=== PATIENT | female | born 1960 | race Caucasian/White ===

== ENCOUNTER 2018-05-23 10:27 | Inpatient (IN) ==
[2018-05-23] MEDS ORDERED: Adenosine 90 MG/30 ML MLS IV ONE (11:32)
[2018-05-23] MEDS ORDERED: Naloxone 0.4 MG/ML INJ IVP PRN (12:33)
--- NOTE | 2018-05-23 12:46 | Cardiology History & Physical ---
Date of Encounter: 05/23/18 Time of Encounter: 12:30 Assessment and Plan (1) Abnormal stress test Current Visit: Yes Status: Acute The assessment and plan as outlined above was discussed with the patient and/or family members who expressed understanding and agreement. All questions were answered. C/o typical chest pain symptoms with h/o MA and CAD. Pharmacologic nuclear stress test completed today reviewed. Stress EKG showed NSR and she developed LBBB with stress. Perfusion imaging positive for ischemia in the inferolateral segments. [facility] recommended for further evaluation. R/B/A discussed and she agrees to proceed. Check CBC, BMP, PT/INR. Asa, statin, and bb. (2) Unstable angina Current Visit: Yes Status: Acute The assessment and plan as outlined above was discussed with the patient and/or family members who expressed understanding and agreement. All questions were answered. (3) CAD (coronary artery disease) Current Visit: Yes Status: Acute The assessment and plan as outlined above was discussed with the patient and/or family members who expressed understanding and agreement. All questions were answered. H/o CAD s/p MA and PCI to RCA in 2002. Continue asa. I will add statin and bb. Qualifiers: Coronary Disease-Associated Artery/Lesion type: [place] artery [place] vs. transplanted heart: [place] heart Associated angina: with unstable angina Qualified Code(s): I25.110 - Atherosclerotic heart disease of [place] coronary artery with unstable angina pectoris (4) COPD (chronic obstructive pulmonary disease) Current Visit: Yes Status: Acute The assessment and plan as outlined above was discussed with the patient and/or family members who expressed understanding and agreement. All questions were answered. No exacerbation at this time. Continue inhalers. Qualifiers: COPD type: unspecified COPD Qualified Code(s): J44.9 - Chronic obstructive pulmonary disease, unspecified History of Present Illness Chief complaint: chest pain HPI: Ms. Davidson is a 57 year old female with past medical history of CAD s/p prior PCI to the RCA at [facility] in 2002, COPD, and HTN. She presents from the [facility] stress lab as a direct admit for chest pain and abnormal stress test. C/o intermittent daily chest pain over the last month. C/o left sided chest pain that occurs after exertion lasting several minutes. Stress test was ordered by PCP for symptoms. Denies chest pain currently. Denies SOB, palpitations. Denies weight gain or edema. Past Med Surg Social Fam HX - Past Medical History Medical history: arthritis, COPD, coronary artery disease, hypertension, myocardial infarction Additional medical history: stent placement 2002. COPD dx 2006 Psychiatric history: anxiety, depression - Past Surgical History Additional surgical history: stent placement 2002 - Social History Smoking Status: Former smoker Smokeless Tobacco Status: No Alcohol use: none Drug use: none Medications and Allergies Aspirin [Ecotrin] 325 mg PO DAILY 05/23/18 [History] Cetirizine HCl [Zyrtec] 10 mg PO DAILY 05/23/18 [History] Fluticasone Furoate [Arnuity Ellipta] 1 puff IH DAILY 05/23/18 [History] Fluticasone Propionate Nasal [Flonase] 1 spray NS DAILY 05/23/18 [History] Hydrocodone/Acetaminophen [Hydrocodon-Acetaminophen 5-325] 1 each PO TID PRN [History] Ipratropium/Albuterol Neb [Duoneb] 3 ml IH Q6HR 05/23/18 [History] LORazepam [Ativan] 0.5 mg PO BID PRN 05/23/18 [History] Lisinopril [Zestril] 2.5 mg PO DAILY 05/23/18 [History] Magnesium Oxide [Magnesium] 400 mg PO DAILY 05/23/18 [History] Montelukast [Singulair] 10 mg PO DAILY 05/23/18 [History] Olodaterol HCl [Striverdi Respimat] 2 puff IH DAILY 05/23/18 [History] Sertraline [Zoloft] 100 mg PO DAILY 05/23/18 [History] Zolpidem [Ambien] 10 mg PO HS 05/23/18 [History] 3 Allergy/AdvReac Type Severity Reaction Status Date / Time No Known Allergies Allergy Unverified 10/21/15 08:30 All Systems Review: The remainder of the systems were reviewed and are negative Physical Examination Vital Signs, Last 4 Hours Temp Pulse Resp BP Pulse Ox 05/23/18 11:37 97.5 F L 71 16 135/84 98 General: Conversant, No Apparent Distress HEENT: Atraumatic, Normocephaly, Mucus Membranes Moist Neck: No JVD, Normal carotid pulses Cardiac: Reg Rate and Rhythm, Normal S1 and S2, No Murmur Lungs: Normal Breath Sounds, No Wheeze, Rales, Rhonchi Neuro: Alert and responsive, No focal deficits noted Abdomen: Soft, Non-Tender Skin: No rashes noted on visualized skin Musculoskeletal: No Chest Wall Tenderness Extremities: No Clubbing, No Cyanosis, No Edema, Normal Pulses Results - Imaging and Cardiology Stress Test: report reviewed - EKG Interpretation EKG results cardiology: personally reviewed
[2018-05-23 13:07] LABS: Basophils % 0.5 %; Eosinophils # 0.1 K/mcL (0.0-0.6); Hematocrit 43.8 % (35.3-44.9); Hemoglobin 14.9 g/dL (11.5-15.4); Immature Granulocytes % 0.3 % (0-4); Lymphocytes # 1.3 K/mcL (0.6-4.6); Mean Corpuscular Hemoglobin 29.7 pg (28.0-33.3); Mean Corpuscular Volume 87.4 fL (83.0-100.0); Monocytes # 0.4 K/mcL (0.0-1.3); Monocytes % 6.6 %; Platelet Count 259 K/mcL (140-400); Red Blood Count 5.01 M/mcL (3.82-4.97); Red Cell Distribution Width 12.8 % (11.5-14.5); Segmented Neutrophils % 69.6 %
[2018-05-23 13:25] LABS: Prothrombin Time 11.3 Seconds (9.4-12.1)
[2018-05-23 13:26] LABS: BUN/Creatinine Ratio 18 (6-26); Blood Urea Nitrogen 12 mg/dL (6-20); Calcium 9.7 mg/dL (8.6-10.3); Carbon Dioxide 26 mEq/L (23-29); Chloride 107 mEq/L (98-107); Glucose 93 mg/dL (70-105); Osmolality,Calculated 289 (280-300); Potassium 3.8 mEq/L (3.5-5.1); Sodium 140 mEq/L (136-145); eGFR For Non-African Americans > 60 (> 60)
[2018-05-23] MEDS: Aspirin Enteric Coated 325 MG Tablet PO SCH (14:05)
[2018-05-23] MEDS ORDERED: 0.9 % Sodium Chloride 1,000 ML ONE ×2 (15:38→15:39)
[2018-05-23] MEDS ORDERED: Nitroglycerin 1,000 MCG/10 ML VIAL IV ONE (15:38)
[2018-05-23] MEDS ORDERED: Heparin 1,000 UNITS/500 mL 500 ML ONE (15:38)
[2018-05-23] MEDS ORDERED: ISOVUE-370 200 ML INFUS..BTL IV ONE (15:38)
[2018-05-23] MEDS: Ipratropium/Albuterol Neb 3 ML IH SCH ×2 (15:38→21:42)
[2018-05-23] MEDS ORDERED: *HR* Heparin 10,000 UNIT/10 ML VIAL ONE (15:38)
--- NOTE | 2018-05-23 16:11 | Pre-Sedation Evaluation ---
Pre-sedation evaluation - Pre-sedation checklist Date of procedure: 05/23/18 Procedure: [facility] Recent Vitals: Last Vital Signs Temp 97.7 F 05/23/18 15:40 Pulse 65 05/23/18 15:40 Resp 15 05/23/18 15:40 BP 121/73 05/23/18 15:40 Pulse Ox 100 05/23/18 15:40 H&P (including ROS) documented in medical record: Yes Previous reaction to sedatives/anesthetics: No Dietary Status: NPO after Midnight Airway Assessment: Patient can open mouth completely, TMJ function normal, Micrognathia (under-bite, receding chin) absent, Neck with adequate range of motion Dentition: dentures removed Possible difficult airway: No ASA Classification *see protocol: CLASS II-Mild systemic disease Cardiac Registry (Cardio Only) - Functional Capacity Functional Capacity: < 4 METS - Clincal Frailty Scale Clinical Frailty Scale: Vulnerable
[2018-05-23] MEDS ORDERED: *HR* FentaNYL (PF) 100 MCG/2 ML VIAL ONE (16:17)
[2018-05-23] MEDS ORDERED: *HR* Midazolam HCl 2 MG/2 ML VIAL ONE ×2 (16:17→16:26)
--- NOTE | 2018-05-23 17:27 | Invasive Diagnostic Lab Proc ---
Name: Edna Davidson Date of Study: 05/23/2018 Date: 1960 Ht: 66.1in Medical Record#: [id number] Age: 57 Wt: 136.69lb Gender: Female BSA: 1.7 Order #: [id number] BMI: 21.97 Physicians Procedure Physician: Minal Nguyen MD, [facility] Referring MD: Referring MD: Staff Name Position Time In Bell Wade RT (R) Monitor 04:19 PM JrDany RT (R) 04:19 PM Cindy Werner RN Shiftman 04:19 PM Indications Indication Abnormal Test - Stress Procedures Performed Procedure L HRT ARTERY/VENTRICLE ANGIO IV Doppler BLD Flow 1st Vessel Pre-Procedure Checklist Informed consent is complete signed and on chart. H&P is on chart. ID band is on and ID verified with patient. Patient NPO for procedure The procedure was described for the patient and questions were answered. Blood Pressure: 135/84 ECG is on chart. Plan of Care Patient will tolerate the procedure without complications. Adequate level of comfort will be maintained. Hemodynamics will remain stable Patient will recover from procedure without complications. Respiratory function will be maintained. Cardiac rhythm will remain stable. Patient temperature will be maintained. Patient and/or family have verbalized understanding of the procedure. Patient Education Chief Complaint/Reason for Test: Cardiac Cath Developmental Category: Adult (18-64 years) Developmentally Appropriate for Age: Yes Learning Barriers: None Education Needs: Procedure Education Method: Verbal Information Taught: Cardiac Cath Educational Evaluation: Able to repeat information Intravenous Access Time IV Size Location DC'd Fluid/Drip Rate Units RN 22g 1" Patent On Arrival Lt Antecubital 0.9NaCl 25 ml/hr Allergies *HR* CODEINE Codeine Diphenhydramine Hydrochlorid Diphenhydramine No Known Allergies Vital Signs Time BP (mmHg) HR (bpm) O2 Sat. RR (bpm) LOC 01:04 PM 135 / 84 71 98 % 16 5 = Fully awake and oriented or at pre-proc level 04:20 PM / % 4 = Oriented but drowsy 04:17 PM 152 / 66 67 100 % 22 04:22 PM 122 / 60 65 98 % 21 04:27 PM 116 / 66 65 97 % 18 04:32 PM 103 / 51 65 93 % 24 04:37 PM 91 / 49 71 93 % 29 04:42 PM 102 / 49 69 94 % 15 04:47 PM 104 / 46 66 95 % 14 04:53 PM 127 / 62 65 99 % 30 04:57 PM 135 / 70 65 99 % 18 05:02 PM 147 / 76 77 100 % 23 05:07 PM 139 / 102 70 99 % Procedural Medications Time Medication Dose Units Method Given By 04:20 PM Oxygen 2 L/min nasal cannula Cindy Werner RN 04:20 PM Versed 2 mg Intravenous Cindy Werner RN 04:20 PM Fentanyl 50 mcg Intravenous Cindy Werner RN 04:23 PM Lidocaine 2% 19 ml Subcutaneous Minal Nguyen MD, FAC 04:25 PM Versed 1 mg Intravenous Cindy Werner RN 04:25 PM Fentanyl 25 mcg Intravenous Cindy Werner RN 04:36 PM Nitroglycerin 200 mcg Intracoronary Minal Nguyen MD, FACC 04:52 PM Angiomax 0.75mg/kg bolus: 9 ml Intravenous Cindy Werner RN 04:52 PM Angiomax 1.75mg/kg/hr: 21 ml Intravenous Cindy Werner RN 04:56 PM 90mg Adenosine in 90 ml 0.9 NS 521 mcg Intravenous Cindy Werner RN ASA Classification: CLASS II- Mild systemic disease (i.e. well-controlled diabetes, hypertension, asthma, cigarette smoking) [place] Score Preprocedure Postprocedure Activity 2- Moves 4 extremities sustained head lift Activity 2- Moves 4 extremities sustained head lift Circulation 2- SBP +/= 20 points of pre-anesthetic level Circulation 2- SBP +/= 20 points of pre-anesthetic level Consciousness 2- Awake and alert oriented x 3 Consciousness 2- Awake and alert oriented x 3 O2 Saturation 2- Able to maintain O2 satruation of 92% on room air O2 Saturation 2- Able to maintain O2 satruation of 92% on room air Respiratory 2- Able to deep breathe and cough well Respiratory 2- Able to deep breathe and cough well Total Score 10 Total Score 10 Contrast Agent: Isovue Diagnostic Contrast: 64 ml Total Contrast: 64 ml Fluoro Dose: 1349 mGy Procedure Log Time Note Enter By 04:09 PM CathStat 04:17 PM Case Start 04:17 PM Vitals capture started with the following parameters, Patient=Adult, Interval=5 min, Initial Tvmsmujg=210 mmHg, Deflation Rate=5 mmHg, Cuff placed on Right Arm 04:17 PM Recorded ECG: HR=64 Condition=Condition 1 04:17 PM HR=67 bpm, BNYI=756/66 mmhg, PeK6=742.0 %, Resp=22 B/min, Comment=NSR 04:19 PM Pt arrived to laborer/key man 2 at 16:19 [email or web address] 04:19 PM Bell Wade RT (R) Position: Monitor Time in: 16:19 [email or web address] 04:19 PM Dany Norris RT (R) Position: Time in: 16:19 [email or web address] 04:19 PM Cindy Werner RN Position: Shiftman Time in: 16:19 [email or web address] 04:19 PM Patient charges- Angio tray pack, Navilyst 3mm J, Pulse Oximetry and ACIST tubing and transducer [email or web address] 04:20 PM Case Delayed No [email or web address] 04:20 PM Hair removed from procedure site in holding area using clippers. Bilateral groin prepped with Chloraprep by Bell Wade RT (R), then patient was draped. Skin intact. [email or web address] 04:20 PM Physician arrived 16:20 [email or web address] 04:20 PM ASA Class CLASS II- Mild systemic disease (i.e. well-controlled diabetes, hypertension, asthma, cigarette smoking) [email or web address] 04:20 PM Meet and greet completed [email or web address] 04:20 PM Sign in performed according to hospital policy. [email or web address] 04:20 PM Procedure start 16:20 [email or web address] 04:20 PM Time: 16:20 Patient comfortable and pain free: Yes [email or web address] 04:20 PM Time: 16:20LOC: 4 = Oriented but drowsy [email or web address] 04:20 PM Time: 16:20 Oxygen on at 2 L/min per nasal cannula by Cindy Werner RN [email or web address] 04:20 PM Time: 16:20 Versed 2 mg Intravenous Given by Cindy Werner RN [email or web address] 04:21 PM Time: 16:20 Fentanyl 50 mcg Intravenous Given by Cindy Werner RN [email or web address] 04:21 PM Pressure channel 1 zeroed. 04:22 PM HR=65 bpm, EZUQ=331/60 mmhg, SpO2=98.0 %, Resp=21 B/min, Comment=NSR 04:23 PM Time out performed according to hospital policy [email or web address] 04:23 PM Time: 16:23 19 ml Lidocaine 2% to right groin Subcutaneous Given by Minal Nguyen MD, [facility] [email or web address] 04:24 PM Access obtained by percutaneous puncture. 5Fr 10cm Terumo Comstock sheath placed in right Femoral artery. [id number] [email or web address] 04:24 PM 0.035 145cm Navilyst 3mmJ wire [id number] [email or web address] 04:24 PM 5Fr FL 4 catheter inserted over the wire DN [email or web address] 04:25 PM Time: 16:25 Versed 1 mg Intravenous Given by Cindy Werner RN [email or web address] 04:25 PM Time: 16:25 Fentanyl 25 mcg Intravenous Given by Cindy Werner RN [email or web address] 04:25 PM Pressure channel 1 zeroed. 04:26 PM LCA angiography performed in multiple views. [email or web address] 04:26 PM Recorded Pressure: Ao, HR=67, Condition=Condition 1 (Aorta) Ao 91/40/66 04:27 PM Catheter removed [email or web address] 04:27 PM 5Fr FR 4 catheter inserted over the wire DN [email or web address] 04:27 PM RCA angiography performed in multiple views. [email or web address] 04:27 PM HR=65 bpm, QMGB=180/66 mmhg, SpO2=97.0 %, Resp=18 B/min, Comment=NSR 04:28 PM Recorded Pressure: Ao, HR=66, Condition=Condition 1 (Aorta) Ao 93/56/73 04:28 PM Coronary Dominance: right [email or web address] 04:29 PM Catheter removed [email or web address] 04:29 PM 5Fr Pigtail catheter inserted over the wire DN [email or web address] 04:29 PM Pressure channel 1 zeroed. 04:30 PM Recorded Pressure: LV, HR=67, Condition=Condition 1 (Left Ventricle) LV 90/6/7 04:30 PM Catheter selectively placed in left ventricle [email or web address] 04:30 PM Bolus angiogram of left Ventricle complete: 8 ml/sec for a total of 24 mls [email or web address] 04:30 PM Recorded Pressure: LV, Ao, HR=77, Condition=Condition 1 (Left Ventricle) LV 65/11/27, (Aorta) Ao 82/51/66 04:30 PM Catheter removed [email or web address] 04:32 PM HR=65 bpm, YMMU=561/51 mmhg, SpO2=93.0 %, Resp=24 B/min, Comment=NSR 04:32 PM Pressure channel 1 zeroed. 04:35 PM 4Fr FL catheter inserted over the wire [id number] [email or web address] 04:36 PM Recorded Pressure: Ao, HR=69, Condition=Condition 1 (Aorta) Ao 91/49/66 04:36 PM Time: 16:36 Nitroglycerin 200 mcg Intracoronary Given by Minal Nguyen MD, [facility] [email or web address] 04:37 PM Recorded Pressure: Ao, HR=71, Condition=Condition 1 (Aorta) Ao 76/53/65 04:37 PM HR=71 bpm, NIBP=91/49 mmhg, SpO2=93.0 %, Resp=29 B/min, Comment=NSR 04:39 PM LCA angiography performed in multiple views. [email or web address] 04:39 PM Catheter removed [email or web address] 04:40 PM 5 Fr FL catheter re-inserted. [email or web address] 04:42 PM NIBP STAT measurement started. 04:42 PM Catheter removed [email or web address] 04:42 PM HR=69 bpm, GYLW=789/49 mmhg, SpO2=94.0 %, Resp=15 B/min, Comment=NSR 04:44 PM Pressure channel 1 zeroed. 04:47 PM HR=66 bpm, HTBT=487/46 mmhg, SpO2=95.0 %, Resp=14 B/min, Comment=NSR 04:50 PM [ Start FFR sample ] 04:50 PM [ Start FFR sample ] 04:51 PM Pressure channel 3 zeroed. 04:52 PM 6Fr RBL 3.5 Convey guide catheter was used to cannulate the PCI vessel successfully. reused? No [email or web address] 04:52 PM Inflation device was opened. [email or web address] 04:52 PM Time: 16:52 Angiomax 0.75mg/kg bolus: 9 ml Intravenous Given by Cindy Werner RN Cadena pump [email or web address] 04:52 PM Time: 16:52 Angiomax 1.75mg/kg/hr: 21 ml Intravenous Given by Cindy Werner RN Cadena pump [email or web address] 04:52 PM [employer] FFR Wire advanced to target lesion. [email or web address] 04:53 PM HR=65 bpm, NSSY=245/62 mmhg, SpO2=99.0 %, Resp=30 B/min 04:54 PM Pressure channel 3 equalized to channel 1. 04:56 PM Time: 16:56 90mg Adenosine in 90 ml 0.9 NS 521 mcg Intravenous Given by Cindy Werner RN Cadena pump [email or web address] 04:57 PM HR=65 bpm, JPAV=016/70 mmhg, SpO2=99.0 %, Resp=18 B/min, Comment=NSR 04:58 PM FFR: Value=0.87, Condition=Condition 1, Device=VOLCANO PRIME WIRE 04:58 PM Recorded Pressure: Ao, PV1, FFR=0.87, HR=78, Condition=Condition 1 (Aorta) Ao 126/69/92, (Portal Vein) PV1 120/121/81 04:59 PM Angiomax turned off. [email or web address] 05:00 PM FFR Measurement: 0.87 [email or web address] 05:00 PM Flow Wire/Catheter removed intact [email or web address] 05:00 PM Guide catheter removed intact. [email or web address] 05:01 PM Procedure completed at 17:01 05/23/2018 [email or web address] 05:01 PM Did you address FRANCISCO flow and Dominance? Yes [email or web address] 05:02 PM Sign out completed: Radiation Dose 113.41 mGy, 1348.95 cGy/cm2 Fluoro Time: 3.7 Isovue 370 - 64ml contrast 64 ml given by Minal Nguyen MD, [facility]. Complications: NoneCardiac Rehab Consult needed: YesConfirmed administered medications: Yes [email or web address] 05:02 PM Isovue 370 - 200ml,1 Bottle(s) used. [email or web address] 05:02 PM Estimated Blood Loss: minimal [email or web address] 05:02 PM Post ECG NSR [email or web address] 05:02 PM Post Blood Pressure 135/70 [email or web address] 05:02 PM Information taught Cardiac Cath [email or web address] 05:02 PM HR=77 bpm, NNJQ=713/76 mmhg, CgG0=726.0 %, Resp=23 B/min, Comment=NSR 05:02 PM Education needs Procedure, Plan of Care, and Disease Process [email or web address] 05:03 PM Learning barriers :None [email or web address] 05:03 PM Education Methods Verbal [email or web address] 05:03 PM Education evaluation Able to repeat information [email or web address] 05:03 PM Arterial sheath pulled, Mynx closure device used and was Successful S/N. [email or web address] 05:04 PM Delay to floor No [email or web address] 05:04 PM Family placed in consult room. [email or web address] 05:04 PM Complications: None [email or web address] 05:07 PM HR=70 bpm, UFZW=505/102 mmhg, SpO2=99.0 % 05:07 PM Site status No bleeding/hematoma - Rt Groin as reported by Dany Norris RT (R) at 17:07 [email or web address] 05:07 PM Opsite applied [email or web address] 05:19 PM Report given to Sandhya GALEAS Pt taken to Room #36. 17:19 [email or web address] 05:19 PM Patient out of room: 17:19 [email or web address] Complications Complication None None Hemodynamics Pressures Site Systolic/A Wave Diastolic/V Wave Mean AO 91 40 66 AO 93 56 73 LV 90 6 7 LV 65 11 27 AO 82 51 66 AO 91 49 66 AO 76 53 65 AO 126 69 92 PV1 120 121 81 Post Procedure Information Blood Pressure: 135/70 mmHg Rhythm: NSR Post procedural instructions were given Closure Device Time Device Success/Fail 05/23/2018 5:05:00 PM MynxGrip Successful Site Checks Time Location Status Staff Sheath In? Note 05:07 PM Rt Groin No bleeding/hematoma Dany Norris RT (R) Pulses Time Site Pre-Procedure Post-Procedure Note Bilateral DP 2+ 2+ Bilateral radial 2+ 2+ Updated by Bell Wade RT(R) on 05/23/2018 5:19:28 PM electronically signed on 05/23/2018 5:20:02 PM with status of Final
[2018-05-23] MEDS ORDERED: Nitroglycerin 0.4 MG TAB.SUBL SL PRN (17:41)
[2018-05-23] MEDS ORDERED: 0.9 % Sodium Chloride 250 ML IVC ONE (19:32)
[2018-05-23] MEDS ORDERED: 0.9 % Sodium Chloride 250 ML ONE (19:34)
[2018-05-24] MEDS: Ipratropium/Albuterol Neb 3 ML IH SCH ×4 (03:59→21:37)
[2018-05-24] MEDS: (Fluticasone Furoate [Arnuity Ellipta] 1 PUFF) IH SCH (07:16)
[2018-05-24] MEDS: (Olodaterol Hcl [Striverdi Respimat] 2 PUFF) IH SCH (07:17)
[2018-05-24] MEDS: Aspirin Enteric Coated 325 MG Tablet PO SCH (07:24)
[2018-05-24] MEDS: Loratadine 10 MG TABLET PO SCH (07:24)
[2018-05-24] MEDS: Isosorbide MONOnitrate (24 HR) 30 MG TAB.ER.24H PO SCH (07:25)
[2018-05-24] MEDS: Magnesium Oxide 400 MG TABLET PO SCH (07:25)
[2018-05-24] MEDS: *HR* LORazepam 0.5 MG TABLET PO PRN ×2 (10:21→19:46)
--- NOTE | 2018-05-24 10:27 | Cardiothoracic Consult Note ---
Date of Encounter: 05/24/18 Time of Encounter: 10:24 Assessment and Plan (1) CAD (coronary artery disease) Current Visit: Yes Status: Acute The assessment and plan as outlined above was discussed with the patient and/or family members who expressed understanding and agreement. All questions were answered. The patient has a left main lesion as well as an ostial circumflex lesion that is difficult for PTCA. I discussed coronary artery bypass grafting with her and her family. This would include a left internal mammary artery to the LAD and a vein graft to the obtuse marginal branch of the circumflex. Risks of surgery include , stroke, infection, myocardial infarction, clots around the heart, renal or respiratory failure, acute or chronic graft closure, phrenic nerve injury and sternal dehiscence. She is at increased risk for pulmonary complications and ventilator dependence because of her pre-existing COPD. She uses inhalers and is on 3 L oxygen by nasal prong almost continuously. The procedure, its risks, benefits and alternatives were explained and she does wish to proceed. Operative consent was obtained. Because she has been having almost daily chest pain at rest, we will schedule her for tomorrow. Qualifiers: Coronary Disease-Associated Artery/Lesion type: [place] artery [place] vs. transplanted heart: [place] heart Associated angina: with unstable angina Qualified Code(s): I25.110 - Atherosclerotic heart disease of [place] coronary artery with unstable angina pectoris - History of Present Illness History of present illness: Ms. Davidson is a 57 year old female The patient is a 57-year-old female with a history of chest pain and a positive stress test. The chest pain occurs daily and occurs with rest and activity. She did have a myocardial infarction in 2002 and stent placement in her right coronary artery in 2002. Cardiac catheterization revealed minor right coronary artery disease. She has a 50% left main lesion. She has a 99% ostial circumflex lesion that abuts the left main. This would be difficult to angioplasty as it is quite close to the left main. No history of diabetes. She does have hypertension and hypercholesterolemia. She does have a history of significant COPD and uses inhalers and is on 3 L oxygen by nasal prong more or less continuously. Social history. She lives with her sister in [place]. Her recently . She used to smoke but quit in 2006. She does not drink. Review of systems is notable for headaches. She has been under a lot of stress. She did have a negative brain scan in [place]. Past Med Surg Social Fam HX - Past Medical History Medical history: arthritis, COPD, coronary artery disease, hypertension, myocardial infarction Additional medical history: stent placement 2002. COPD dx 2006 Psychiatric history: anxiety, depression - Past Surgical History Additional surgical history: stent placement 2002 - Social History Smoking Status: Former smoker Smokeless Tobacco Status: No Alcohol use: none Drug use: none Medications and Allergies Aspirin [Ecotrin] 325 mg PO DAILY 05/23/18 [History] Cetirizine HCl [Zyrtec] 10 mg PO DAILY PRN 05/23/18 [History] Fluticasone Furoate [Arnuity Ellipta] 1 puff IH DAILY 05/23/18 [History] Fluticasone Propionate Nasal [Flonase] 1 spray NS DAILY PRN 05/23/18 [History] Hydrocodone/Acetaminophen [Hydrocodon-Acetaminophen 5-325] 1 each PO TID PRN [History] Ipratropium/Albuterol Neb [Duoneb] 3 ml IH Q6HR PRN 05/23/18 [History] LORazepam [Ativan] 0.5 mg PO BID PRN 05/23/18 [History] Lactobacillus Combination No.8 [Adult Probiotic] 1 cap PO DAILY 05/23/18 [ History] Lisinopril [Zestril] 2.5 mg PO DAILY PRN 05/23/18 [History] Magnesium Oxide [Magnesium] 400 mg PO DAILY 05/23/18 [History] Montelukast [Singulair] 10 mg PO DAILY 05/23/18 [History] Olodaterol HCl [Striverdi Respimat] 2 puff IH DAILY 05/23/18 [History] Oxygen 3 l NS AD 05/23/18 [History] Sertraline [Zoloft] 100 mg PO HS 05/23/18 [History] Zolpidem [Ambien] 10 mg PO HS 05/23/18 [History] 3 Allergy/AdvReac Type Severity Reaction Status Date / Time No Known Allergies Allergy Verified 05/23/18 18:10 All Systems Review: The remainder of the systems were reviewed and are negative Physical Examination Vital Signs, Last 4 Hours Temp Pulse Resp BP Pulse Ox 05/24/18 10:18 98.1 F 59 15 120/71 95 05/24/18 07:00 98.3 F 71 15 125/69 94 Pupils are equal, round and reactive to light and accommodation. No oral lesions. Neck is supple. Trachea in the midline. No thyromegaly or carotid bruits. Lungs are clear to percussion and auscultation. Heart is in a regular rate and rhythm. No murmurs, gallops or rubs. Abdomen is benign. No tenderness, rebound or guarding. Extremities without edema. No saphenous vein varicosities or strippings. Cranial nerves, motor and sensory intact. Results 05/23/18 12:45 05/23/18 12:45 Lab Results, Last 24 hours 05/23/18 05/23/18 05/23/18 12:45 12:45 12:45 WBC 5.8 Hgb 14.9 Hct 43.8 Plt Count 259 INR 1.0 Sodium 140 Potassium 3.8 Chloride 107 Carbon Dioxide 26 BUN 12 Creatinine 0.68 Glucose 93 Calcium 9.7 Consult Discharge Plan - Plan Referrals: Cassie Gonzalez CNP [Primary Care Provider] - 06/15/18 3:30 pm
[2018-05-24 11:18] LABS: Estimated Average Glucose 103 mg/dl; Hemoglobin A1C 5.2 %
[2018-05-24 11:24] LABS: Basophils % 0.3 %; Eosinophils % 0.5 %; Hematocrit 39.3 % (35.3-44.9); Immature Granulocytes % 0.2 % (0-4); Lymphocytes # 0.9 K/mcL (0.6-4.6); Lymphocytes % 14.5 %; Mean Corpuscular HGB Conc 33.8 g/dL (31.6-35.5); Mean Corpuscular Volume 88.7 fL (83.0-100.0); Mean Platelet Volume 9.2 fL (9.4-12.4); Monocytes # 0.4 K/mcL (0.0-1.3); Monocytes % 6.2 %; Neutrophils # 4.8 K/mcL (1.6-8.9); Platelet Count 261 K/mcL (140-400); Red Blood Count 4.43 M/mcL (3.82-4.97); Segmented Neutrophils % 78.3 %
[2018-05-24 11:38] LABS: Prothrombin Time 11.4 Seconds (9.4-12.1)
[2018-05-24 11:41] LABS: Activated Partial Thrombo Time 31.2 Seconds (26.0-36.0)
[2018-05-24 11:55] LABS: BUN/Creatinine Ratio 19 (6-26); Blood Urea Nitrogen 13 mg/dL (6-20); Calcium 9.2 mg/dL (8.6-10.3); Carbon Dioxide 26 mEq/L (23-29); Chloride 109 mEq/L (98-107); Chol/HDL Ratio 2.9 (0-4.9); Cholesterol 219 mg/dL (< 200); Glucose 101 mg/dL (70-105); HDL Cholesterol 75 mg/dL (40-59); Hemoglobin 13.3 g/dL (11.5-15.4); LDL Cholesterol,Calculated 128 mg/dL (0-99); Osmolality,Calculated 290 (280-300); Potassium 3.9 mEq/L (3.5-5.1); Sodium 140 mEq/L (136-145); Triglycerides 79 mg/dL (< 150); eGFR For Non-African Americans > 60 (> 60)
--- NOTE | 2018-05-24 11:57 | Anesthesia Evaluation PreOp ---
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: Other (anxiety depression) Other Medical History: Denies Any Significant HX Anesthesia History: No Prior Anesthetic Complications, Past Anesthesia : No Alcohol Use: none Drug use: none Medications and Allergies Aspirin [Ecotrin] 325 mg PO DAILY 05/23/18 [History] Cetirizine HCl [Zyrtec] 10 mg PO DAILY PRN 05/23/18 [History] Fluticasone Furoate [Arnuity Ellipta] 1 puff IH DAILY 05/23/18 [History] Fluticasone Propionate Nasal [Flonase] 1 spray NS DAILY PRN 05/23/18 [History] Hydrocodone/Acetaminophen [Hydrocodon-Acetaminophen 5-325] 1 each PO TID PRN [History] Ipratropium/Albuterol Neb [Duoneb] 3 ml IH Q6HR PRN 05/23/18 [History] LORazepam [Ativan] 0.5 mg PO BID PRN 05/23/18 [History] Lactobacillus Combination No.8 [Adult Probiotic] 1 cap PO DAILY 05/23/18 [ History] Lisinopril [Zestril] 2.5 mg PO DAILY PRN 05/23/18 [History] Magnesium Oxide [Magnesium] 400 mg PO DAILY 05/23/18 [History] Montelukast [Singulair] 10 mg PO DAILY 05/23/18 [History] Olodaterol HCl [Striverdi Respimat] 2 puff IH DAILY 05/23/18 [History] Oxygen 3 l NS AD 05/23/18 [History] Sertraline [Zoloft] 100 mg PO HS 05/23/18 [History] Zolpidem [Ambien] 10 mg PO HS 05/23/18 [History] 3 Allergy/AdvReac Type Severity Reaction Status Date / Time No Known Allergies Allergy Verified 05/23/18 18:10 - Meds/Allergy Pre-op Review Medications Reviewed: Yes Allergies Reviewed: Yes Anesthesia Results - Labs 05/24/18 10:47 05/24/18 10:47 - Imaging EKG: report reviewed, image reviewed Additional studies: Impressions: Double vessel coronary artery disease. The left ventricle is normal and has normal contractility EF 65% Recommendations: Optimal medical therapy of patient's disease. Aggressive risk factor modification. Evaluate for CABG vs high risk PCI of ostial Cx. History/Risk Factors: COPD Anxiety/depression PCI to RCA Hypertension Previous PCI Date: 09/26/2002 Access obtained in the right Femoral artery by percutaneous puncture Contrast: Isovue 64ml LV Ventriculography Ejection Method: LV Gram Ejection Fraction: 65% Coronary Dominance: right Lesion Findings/Interventions * Left Main Coronary Artery There is a 50% stenosis in the Proximal LMCA. Catheter-induced spasm alleviated with IC NTG. FFR 0.87. * Left Anterior Descending There is a 30% stenosis in the Proximal LAD. The lesion has moderate calcification noted. There is a 20% stenosis in the 1st Diagonal. The lesion has moderate calcification noted. * Circumflex There is a 99% stenosis in the Ostial/ Proximal Circumflex. * Right Coronary Artery There is a 30% stenosis in the Proximal RCA. There is a 30% in stent stenosis in the Mid RCA. There is a 40% stenosis in the Distal RCA. Anesthesia Exam Vital Signs/O2 Sat/Glucose, Most Recent Temp Pulse Resp BP Pulse Ox 98.1 F 59 15 120/71 95 05/24/18 10:18 05/24/18 10:18 05/24/18 10:18 05/24/18 10:18 05/24/18 10:18 Height: 1.68 m Weight: 61.4 kg NPO (# of Hours): midnight - HEENT Pupil (Motor): Pupils equal Mallampati: II Denture Type: Upper: Partial - PIPE LINE INSPECTOR LOC: Oriented PIPE LINE INSPECTOR Motor: Normal RUE, Normal LUE, Normal RLE, Normal LLE, Normal Face PIPE LINE INSPECTOR Sensory: Normal: RUE, LUE, RLE, LLE, Face - Cardiac Rhythm: Regular Murmur: None - Pulmonary Breath Sounds: bilateral Clear Respiratory Effort: Symmetrical Anesthesia Assess/Plan ASA Score: 4 Modified Pedrito Scale for Level of Consciousness: Cooperative, oriented, and tranquil Anesthetic Plan: General Monitoring Plan: Standard Monitors, A-Line, PAC, JANETTE Recovery Plan: ICU
--- NOTE | 2018-05-24 13:12 | Cardiology Progress Note ---
Date of Encounter: 05/24/18 Time of Encounter: 12:10 Assessment and Plan (1) Abnormal stress test Current Visit: Yes Status: Acute The assessment and plan as outlined above was discussed with the patient and/or family members who expressed understanding and agreement. All questions were answered. C/o typical chest pain symptoms with h/o TN and CAD. Stress EKG showed NSR and she developed LBBB with stress. Perfusion imaging positive for ischemia in the inferolateral segments. LHC completed revealed severe two vessel CAD. CT surgery consulted and CABG recommended. Surgery scheduled for am. Asa, statin, and bb. D/c aceI as recommended by guidelines for CABG. (2) Unstable angina Current Visit: Yes Status: Acute The assessment and plan as outlined above was discussed with the patient and/or family members who expressed understanding and agreement. All questions were answered. Currently pain free. See plan above. (3) CAD (coronary artery disease) Current Visit: Yes Status: Acute The assessment and plan as outlined above was discussed with the patient and/or family members who expressed understanding and agreement. All questions were answered. H/o CAD s/p TN and PCI to RCA in 2002. Continue asa, statin,and bb. LHC revealed severe double vessel CAD. There is a 50% stenosis in the Proximal LMCA. Catheter-induced spasm alleviated with IC NTG. FFR 0.87. 30% stenosis in the Proximal LAD. 20% stenosis in the 1st Diagonal. 99% stenosis in the Ostial/ Proximal Circumflex. 30% stenosis in the Proximal RCA. 30% in stent stenosis in the Mid RCA. 40% stenosis in the Distal RCA. No complication from procedure. CABG scheduled for tomorrow. CT surgery following pt. Qualifiers: Coronary Disease-Associated Artery/Lesion type: [place] artery [place] vs. transplanted heart: [place] heart Associated angina: with unstable angina Qualified Code(s): I25.110 - Atherosclerotic heart disease of [place] coronary artery with unstable angina pectoris (4) COPD (chronic obstructive pulmonary disease) Current Visit: Yes Status: Acute The assessment and plan as outlined above was discussed with the patient and/or family members who expressed understanding and agreement. All questions were answered. No exacerbation at this time. Continue inhalers. Qualifiers: COPD type: unspecified COPD Qualified Code(s): J44.9 - Chronic obstructive pulmonary disease, unspecified Discussion w patient/family: The assessment and plan as outlined above was discussed with the patient and/or family members who expressed understanding and agreement. All questions were answered. Thank you for involving us in the care of your patient. Please call with any questions. Subjective Principal diagnosis: CAD, unstable angina Interval history: S/p C. Patient decided to proceed with CABG and is scheduled for tomorrow. Patient and family deny questions. Objective Vital Signs, Last 4 Hours Temp Pulse Resp BP Pulse Ox 05/24/18 10:18 98.1 F 59 15 120/71 95 General: Conversant, No Apparent Distress HEENT: Atraumatic, Normocephaly, Mucus Membranes Moist Neck: No JVD, Normal carotid pulses Cardiac: Reg Rate and Rhythm, Normal S1 and S2, No Murmur Lungs: Normal Breath Sounds, No Wheeze, Rales, Rhonchi Neuro: Alert and responsive, No focal deficits noted Abdomen: Soft, Non-Tender Skin: No rashes noted on visualized skin Musculoskeletal: No Chest Wall Tenderness Extremities: No Clubbing, No Cyanosis, No Edema, Normal Pulses, Other (Right radial access dressing removed. No hematoma. ) Results 05/24/18 10:47 05/24/18 10:47 Lab Results 05/23/18 05/23/18 05/24/18 12:45 12:45 10:47 WBC 6.1 Hgb 13.3 D Hct 39.3 Plt Count 261 INR 1.0 APTT Sodium 140 Potassium 3.8 Chloride 107 Carbon Dioxide 26 BUN 12 Creatinine 0.68 Glucose 93 Calcium 9.7 05/24/18 05/24/18 10:47 10:47 WBC Hgb Hct Plt Count INR 1.0 APTT 31.2 Sodium 140 Potassium 3.9 Chloride 109 H Carbon Dioxide 26 BUN 13 Creatinine 0.67 Glucose 101 Calcium 9.2 - Imaging and Cardiology Stress Test: report reviewed Echo: report reviewed - EKG Interpretation EKG results cardiology: personally reviewed Consult Discharge Plan - Plan Referrals: Cassie Gonzalez CNP [Primary Care Provider] - 06/15/18 3:30 pm
[2018-05-24 14:40] LABS: Bilirubin,Urine Negative (Negative); Blood,Urine Negative (Negative); Clarity,Urine Clear (Clear); Color,Urine Yellow (Yellow); Glucose,Urine (UA) Normal (Normal); Ketones,Urine Negative (Negative); Leukocyte Esterase,Urine Negative (Negative); Nitrite,Urine Negative (Negative); Protein,Urine Negative (Neg-Trace); Urobilinogen,Urine Normal (Normal)
[2018-05-24] MEDS ORDERED: *HR* Heparin 5,000 UNIT/ML VIAL SQ ONE (18:00)
[2018-05-24] MEDS: *HR* HYDROcodone/Acet 5/325 mg TABLET PO PRN (19:40)
[2018-05-24] MEDS: Chlorhexidine Rinse 15 ML MOUTHWASH MM SCH (22:11)
[2018-05-25] MEDS: Ipratropium/Albuterol Neb 3 ML IH SCH ×4 (03:36→22:08)
[2018-05-25] MEDS ORDERED: CeFAZolin Syr 2,000MG/20 ML 2,000 MG/20 ML SYRINGE IVPB ONE (07:00)
[2018-05-25] MEDS ORDERED: *HR* Phenylephrine 10 MG/ML VIAL IVC ONE (08:23)
[2018-05-25] MEDS ORDERED: Lidocaine 2% Syringe 100 MG/5 ML IV ONE (08:23)
[2018-05-25] MEDS ORDERED: Albumin Human 25% 25 GM/100 ML IV.SOLN IV ONE (08:23)
[2018-05-25] MEDS ORDERED: *HR* Magnesium Sulfate 2 GM/50 ML PIGGYBACK IVPB ONE (08:23)
[2018-05-25] MEDS ORDERED: *HR* Heparin 10,000 UNIT/10 ML VIAL IV ONE (08:23)
[2018-05-25] MEDS ORDERED: Mannitol 25% vial 12.5 GM/50 ML VIAL IVP ONE (08:23)
[2018-05-25] MEDS ORDERED: Tranexamic Acid 1,000 MG/10 ML VIAL IVPB ONE (08:23)
[2018-05-25] MEDS: Loratadine 10 MG TABLET PO SCH (08:33)
[2018-05-25] MEDS: Magnesium Oxide 400 MG TABLET PO SCH (08:33)
[2018-05-25] MEDS: Isosorbide MONOnitrate (24 HR) 30 MG TAB.ER.24H PO SCH (08:33)
[2018-05-25] MEDS: Chlorhexidine Rinse 15 ML MOUTHWASH MM SCH ×2 (08:33→19:29)
[2018-05-25] MEDS: Aspirin Enteric Coated 325 MG Tablet PO SCH (08:33)
[2018-05-25] MEDS: (Fluticasone Furoate [Arnuity Ellipta] 1 PUFF) IH SCH (08:34)
[2018-05-25] MEDS: (Olodaterol Hcl [Striverdi Respimat] 2 PUFF) IH SCH (08:34)
[2018-05-25] MEDS: *HR* LORazepam 0.5 MG TABLET PO PRN ×2 (08:40→19:29)
[2018-05-25] MEDS ORDERED: *HR* FentaNYL (PF) 1,000 MCG/20 ML VIAL ONE (09:23)
[2018-05-25] MEDS ORDERED: *HR* Propofol 200 MG/20 ML VIAL IVP ONE (09:23)
[2018-05-25] MEDS ORDERED: *HR* Midazolam HCl 5 MG/5 ML VIAL IVP ONE (09:26)
[2018-05-25] MEDS ORDERED: ceFAZolin 2,000 MG in 0.9 % Sodium Chloride 100 ML IVPB ONE (09:30)
[2018-05-25] MEDS ORDERED: *HR* EPINEPHrine 1 MG/ML AMPUL ONE (09:32)
[2018-05-25] MEDS ORDERED: Lidocaine 2% Syringe 100 MG/5 ML ONE (09:33)
[2018-05-25] MEDS ORDERED: Norepinephrine 4 MG in D5% in Water 250 ML IVC PRN (10:25)
[2018-05-25] MEDS ORDERED: Dextrose 50 % in Water (Vial) 30 ML, Sodium Bicarbonate 20 MEQ, Potassium Chloride 15 M... TH ONE (10:25)
[2018-05-25] MEDS ORDERED: Insulin Human Regular 100 UNIT in 0.9 % Sodium Chloride 100 ML IV PRN (10:25)
[2018-05-25] MEDS ORDERED: Dextrose 50 % in Water (Vial) 30 ML, Sodium Bicarbonate 20 MEQ, Lidocaine 1% 5 ML, Insu... TH ONE ×3 (10:25)
[2018-05-25] MEDS ORDERED: Heparin 15,000 UNIT in 0.9 % Sodium Chloride 500 ML IV ONE (10:25)
[2018-05-25] MEDS ORDERED: Nitroglycerin 25 MG/250 ML INFUS..BTL IVC ONE (10:26)
[2018-05-25] MEDS ORDERED: Verapamil 5 MG/2 ML VIAL ONE (10:31)
[2018-05-25] MEDS ORDERED: Albumin Human 5% 50.0 GM/1,000 ML VIAL ONE (11:07)
[2018-05-25] MEDS ORDERED: 0.9 % Sodium Chloride 500 ML ONE (11:07)
[2018-05-25 11:55] LABS: ABG Base Excess -3 mEq/L (-2 to 3); ABG Chloride 109 mEq/L (98-107); ABG Glucose 95 mg/dL (60-95); ABG HCO3 24 mEq/L (21-27); ABG Ionized Calcium 1.29 mmol/L (1.15-1.35); ABG Oxygen Saturation 98 % (95-98); ABG PCO2 50 mmHg (35-45); ABG PO2 123 mmHg (85-104); ABG TCO2 26 mEq/L (20-26)
[2018-05-25] MEDS ORDERED: *HR* Rocuronium Bromide 50 MG/5 ML VIAL ONE ×2 (12:02→13:54)
[2018-05-25] MEDS ORDERED: Tranexamic Acid 1,000 MG/10 ML VIAL ONE (12:05)
--- NOTE | 2018-05-25 12:24 | Anesthesia Procedures ---
Date of Encounter: 05/25/18 Time of Encounter: 11:15 Procedures: Anesthesia - Arterial Line Consent obtained: written consent Time out performed: Yes Sedation: Versed (mg): 2 Sedation: Fentanyl (mcg): 50 Supplemental Oxygen via Nasal Cannula (L/min): 6 Local Anesthetic: Lidocaine 1% Amount of Anesthetic used (mls): 0.2 Size (Gauge): 20 Length (inches): 1 3/4 Technique Used: direct puncture technique Post-Procedure: line taped into place, dry sterile dressing placed Patient tolerated procedure: well, no complications Complications: none Site: Radial L - Central Line Placement Right IJ Consent obtained: written consent Time out performed: Yes Patient placed on monitor/pulse ox: Yes MD prep: mask, gown, gloves Central line prep: Chlorhexidine scrub Ultrasound used for placement: Yes Technique: Seldinger Lumen Inserted: single Size / Length: 9 Fr / 10 cm Post procedure: sutured in place, good blood return, all ports aspirated, flushed, capped, sterile dressing applied Patient tolerated procedure: well, no complications Complications: none Vitals: see anesthesia chart Comments: PAC inserted with pressure waveform analysis. Secured at 45 cm
[2018-05-25] MEDS ORDERED: *HR* Magnesium Sulfate 1 GM/2 ML VIAL ONE (12:29)
[2018-05-25] MEDS ORDERED: Dexamethasone 4 MG/ML VIAL ONE (12:42)
[2018-05-25 13:18] LABS: ABG Base Excess -1 mEq/L (-2 to 3); ABG Chloride 100 mEq/L (98-107); ABG Glucose 191 mg/dL (60-95); ABG HCO3 23 mEq/L (21-27); ABG Ionized Calcium 0.93 mmol/L (1.15-1.35); ABG Oxygen Saturation 100 % (95-98); ABG PCO2 33 mmHg (35-45); ABG PH 7.45 pH Units (7.32-7.45); ABG PO2 569 mmHg (85-104); ABG TCO2 24 mEq/L (20-26)
[2018-05-25] MEDS ORDERED: Protamine Sulfate 250 MG/25 ML VIAL IVP ONE (13:40)
[2018-05-25] MEDS ORDERED: *HR* FentaNYL (PF) 250 MCG/5 ML VIAL ONE (13:40)
[2018-05-25] MEDS ORDERED: Ondansetron 4 MG/2 ML VIAL ONE (13:57)
[2018-05-25 13:58] LABS: ABG Base Excess 4 mEq/L (-2 to 3); ABG Chloride 104 mEq/L (98-107); ABG Glucose 59 mg/dL (60-95); ABG HCO3 29 mEq/L (21-27); ABG Ionized Calcium 1.21 mmol/L (1.15-1.35); ABG Oxygen Saturation 100 % (95-98); ABG PCO2 40 mmHg (35-45); ABG PH 7.47 pH Units (7.32-7.45); ABG PO2 467 mmHg (85-104); ABG TCO2 30 mEq/L (20-26)
[2018-05-25] MEDS ORDERED: *HR* Dextrose 50 % in Water (Syg) 50 ML SYRINGE ONE (14:23)
[2018-05-25 14:30] LABS: ABG Base Excess -3 mEq/L (-2 to 3); ABG Chloride 109 mEq/L (98-107); ABG Glucose 48 mg/dL (60-95); ABG HCO3 22 mEq/L (21-27); ABG Ionized Calcium 1.05 mmol/L (1.15-1.35); ABG Oxygen Saturation 98 % (95-98); ABG PCO2 39 mmHg (35-45); ABG PH 7.37 pH Units (7.32-7.45); ABG PO2 115 mmHg (85-104); ABG TCO2 24 mEq/L (20-26)
[2018-05-25] MEDS ORDERED: Ondansetron 4 MG/2 ML VIAL IVP PRN (15:07)
[2018-05-25] MEDS ORDERED: *HR* Dextrose 50 % in Water (Syg) 50 ML SYRINGE IVP PRN (15:07)
[2018-05-25] MEDS ORDERED: Acetaminophen 325 MG TABLET PO PRN (15:07)
[2018-05-25] MEDS ORDERED: *HR* Promethazine 25 MG/ML VIAL IVP PRN (15:07)
[2018-05-25] MEDS ORDERED: Potassium Chloride 40 MEQ/200 ML BAG IVPB PRN (15:07)
[2018-05-25] MEDS ORDERED: Insulin Regular, Human 100 UNIT/ML IV PRN (15:07)
[2018-05-25 15:24] LABS: ABG Base Excess 1 mEq/L (-2 to 3); ABG HCO3 27 mEq/L (21-27); ABG Oxygen Saturation 96 % (95-98); ABG PCO2 49 mmHg (35-45); ABG PH 7.34 pH Units (7.32-7.45); ABG PO2 89 mmHg (85-104); ABG TCO2 28 mEq/L (20-26); Blood Gas Modality ASSIST CONTROL; Blood Gas PEEP 5 cm H2O; Blood Gas Respiration Rate 10; Blood Gas VT 500 cc
[2018-05-25 15:29] LABS: Basophils % 0.2 %; Eosinophils # 0.1 K/mcL (0.0-0.6); Eosinophils % 0.5 %; Immature Granulocytes % 0.8 % (0-4); Lymphocytes # 1.3 K/mcL (0.6-4.6); Lymphocytes % 8.3 %; Mean Corpuscular HGB Conc 34.3 g/dL (31.6-35.5); Mean Corpuscular Volume 87.7 fL (83.0-100.0); Mean Platelet Volume 8.7 fL (9.4-12.4); Monocytes % 4.8 %; Red Blood Count 4.06 M/mcL (3.82-4.97); Red Cell Distribution Width 13.2 % (11.5-14.5); Segmented Neutrophils % 85.4 %
[2018-05-25 15:30] LABS: Monocytes # 0.7 K/mcL (0.0-1.3); Neutrophils # 13.2 K/mcL (1.6-8.9)
[2018-05-25 15:32] LABS: Hematocrit 35.6 % (35.3-44.9); Hemoglobin 12.2 g/dL (11.5-15.4); Platelet Count 152 K/mcL (140-400)
[2018-05-25 15:36] LABS: INR 1.2
[2018-05-25 15:39] LABS: Activated Partial Thrombo Time 35.4 Seconds (26.0-36.0)
[2018-05-25 15:43] LABS: Prothrombin Time 13.2 Seconds (9.4-12.1)
[2018-05-25 15:45] LABS: BUN/Creatinine Ratio 15 (6-26); Blood Urea Nitrogen 8 mg/dL (6-20); Calcium 7.5 mg/dL (8.6-10.3); Carbon Dioxide 27 mEq/L (23-29); Chloride 117 mEq/L (98-107); Glucose 105 mg/dL (70-105); Magnesium 3.6 mg/dL (1.6-2.6); Osmolality,Calculated 287 (280-300); Potassium 3.3 mEq/L (3.5-5.1); Sodium 139 mEq/L (136-145); eGFR For Non-African Americans > 60 (> 60)
--- NOTE | 2018-05-25 15:49 | Anesthesia Evaluation Post Op ---
Date of Encounter: 05/25/18 Time of Encounter: 15:48 - Vital Signs Vital Signs: Last Vital Signs Temp 98.0 F 05/25/18 07:10 Pulse 84 05/25/18 07:10 Resp 10 05/25/18 15:05 BP 112/63 05/25/18 15:05 Pulse Ox 97 05/25/18 15:05 - Lungs Lungs: Clear Ascult./Percussion - Airway Airway: Intubated - Cardiovascular Regular Rate - Mental Status Mental Status: Alert & Oriented, Answers Appropriately - Pain Pain Scale used: Michelle (Faces) - Nausea Vomiting Nausea Vomiting: Unable to assess - Hydration Hydration: NPO Notes: 05/25/18 15:48 patient remains in ICU s/p CABG
[2018-05-25] MEDS: Ringers Solution, Lactated 1,000 ML IVC SCH (16:35)
[2018-05-25] MEDS: Norepinephrine 4 MG in D5% in Water 250 ML IVC SCH (16:40)
--- NOTE | 2018-05-25 17:08 | Operative Note ---
Date of procedure: 05/25/18 Was there an administrative services assistant present: Yes Heavy Mobile Equipment Repairer: Geoff Gaitan Estimated blood loss (cc): 750 Specimen: none Condition: critical Disposition: ICU Procedure in Detail: Preoperative diagnosis. Coronary artery disease. Postoperative diagnosis. Same. Procedures. Coronary artery bypass grafting 2 with a left internal mammary artery to the LAD and the aorta to the obtuse marginal branch of the circumflex with saphenous vein. Surgeon. Dr. Kenneth Mohan. Patient is a 57- year-old female with a history of smoking and COPD. She is on 3 L of oxygen at home continuously. Cardiac catheterization revealed a 99% ostial circumflex lesion that was abutting the left main and was not felt to be suitable for angioplasty. In addition, she had left main disease and was referred for surgery. She was brought to the operating room where she was prepped and draped in standard fashion. The right greater saphenous vein was harvested from above the right knee to the right upper thigh. This was done through 2 small incisions using a scope. These incisions were subsequently closed using a deep layer of 2-0 Vicryl and a 3-0 Vicryl subcuticular stitch. Standard median sternotomy was performed. The left internal mammary artery retractor was inserted and the left internal mammary artery was harvested in standard fashion using the Bovie electrocoagulation. The mammary retractor was removed and the standard sternal client services representative was inserted. Pericardium was opened in the midline and suspended with 2-0 silk stay sutures. Double pursestring of 200 [place] was placed in the aorta for the aortic cannulation site. A pursestring of 20 [place] was placed in the right atrial appendage for the venous uptake. The patient was heparinized. The aorta was cannulated without difficulty. 2 stage venous uptake cannula was inserted through the right atrial appendage. A pursestring of 3-0 silk was placed in the aorta and the cardioplegia needle was inserted through here. This was also used as an active and passive aortic vent. The patient was placed on cardiopulmonary bypass and cooled to 34 degrees. At this point, the aorta was crossclamped and a liter of antegrade cardioplegia was given. Topical cooling with iced saline slush was also done. Attention was first turned to the circumflex. The obtuse marginal branch was dissected free with the [place] blade and opened with a [place] blade and the Ram scissors. It had a lumen of 1-1/2 mm with moderate calcific plaquing. A standard end-to-side anastomosis was constructed using the saphenous vein and a 7-0 Prolene. When this is completed, the patient received an additional dose of antegrade cardioplegia. The LAD was dissected free using the [place] blade and opened with the [place] blade and the Ram scissors. This had a lumen of 1-1/2 mm with mild to moderate plaquing. A standard end-to-side anastomosis was constructed using the mammary artery and a 7-0 Prolene. When this is completed, the previously placed bulldog clamp was removed. Distal anastomoses were inspected and found to be hemostatic. The pedicle was tacked to the surface of the heart using 2 interrupted 5-0 silk sutures. Cross-clamp was removed and rewarming was begun. Total cross-clamp time was 33 minutes. A side-biting clamp was placed on the aorta and the cardioplegia needle was removed. A hole was made in the aorta using the [place] blade and the 4.0 mm aortic punch. A standard end-to-side anastomosis was constructed using the saphenous vein and a 6-0 Prolene. When this is completed, the side-biting clamp was removed. The graft was de-aired is #25-gauge needle and the previously placed bulldog clamp was removed. Distal anastomoses were inspected and found to be hemostatic. The proximal anastomosis was marked with a marker from [place] sponge. I did place some FloSeal and fibrillar around the distal and proximal anastomoses. A pair of ventricular pacing wires was left. A 32 angle chest tube in the left pleural space. A 32 right chest tube into the pericardial well. A 42 mediastinal chest tube. A 32 right chest tube to the right pleural space. The patient is weaned from bypass requiring no pressors for support. She was decannulated and protamine was given. Hemostasis was good and the hemodynamics were good. Pericardium was loosely closed with 2 interrupted 2-0 silk sutures. We did use platelet rich and platelet poor plasma to the sternum and tissues above the sternum. The sternum was closed with #7 sternal wires in simple and owlfij-ra-metsc fashion. The fascia was run with a #1 Vicryl. Subcutaneous tissues was closed with a 2-0 Vicryl. Skin was closed with a 3-0 Vicryl subcuticular stitch. The patient tolerated procedure well and was returned to intensive care unit in satisfactory and stable condition. Total bypass time 46 minutes. Total cross-clamp time 33 minutes. She may cooled to 34 degrees.
[2018-05-25] MEDS: *HR* FentaNYL (PF) 100 MCG/2 ML VIAL IVP PRN ×2 (18:14→20:06)
[2018-05-25] MEDS: *HR* OxyCODONE/APAP 5/325 TABLET PO PRN ×2 (18:41→23:27)
[2018-05-25] MEDS: Nitroglycerin 25 MG/250 ML INFUS..BTL IVC SCH ×2 (19:30→19:37)
[2018-05-25] MEDS: niCARdipine 40 MG/200 ML MLS IVC SCH ×2 (19:37→20:39)
[2018-05-25] MEDS: Insulin Human Regular 100 UNIT in 0.9 % Sodium Chloride 100 ML IVC SCH (19:37)
[2018-05-25 20:06] LABS: ABG Base Excess -4 mEq/L (-2 to 3); ABG HCO3 22 mEq/L (21-27); ABG Oxygen Saturation 89 % (95-98); ABG PCO2 46 mmHg (35-45); ABG PO2 64 mmHg (85-104); ABG TCO2 24 mEq/L (20-26); Blood Gas Modality CPAP/PS; Blood Gas PEEP 5 cm H2O; Blood Gas Pressure Support 10 cm H2O
[2018-05-25 23:12] LABS: ABG Base Excess -4 mEq/L (-2 to 3); ABG HCO3 22 mEq/L (21-27); ABG Oxygen Saturation 94 % (95-98); ABG PCO2 44 mmHg (35-45); ABG PH 7.32 pH Units (7.32-7.45); ABG PO2 77 mmHg (85-104); ABG TCO2 24 mEq/L (20-26); Blood Gas Modality CPAP/PS; Blood Gas PEEP 5 cm H2O; Blood Gas Pressure Support 10 cm H2O
[2018-05-26] MEDS: Insulin Human Regular 100 UNIT in 0.9 % Sodium Chloride 100 ML IVC SCH (01:08)
[2018-05-26 02:42] LABS: ABG Base Excess -3 mEq/L (-2 to 3); ABG HCO3 23 mEq/L (21-27); ABG Oxygen Saturation 90 % (95-98); ABG PCO2 46 mmHg (35-45); ABG PH 7.32 pH Units (7.32-7.45); ABG PO2 64 mmHg (85-104); ABG TCO2 25 mEq/L (20-26)
[2018-05-26] MEDS: *HR* FentaNYL (PF) 100 MCG/2 ML VIAL IVP PRN ×4 (03:08→11:56)
[2018-05-26] MEDS: Ipratropium/Albuterol Neb 3 ML IH SCH ×4 (04:01→21:59)
[2018-05-26 04:15] LABS: Basophils % 0.1 %; Hematocrit 38.5 % (35.3-44.9); Immature Granulocytes % 0.5 % (0-4); Lymphocytes # 0.3 K/mcL (0.6-4.6); Mean Corpuscular HGB Conc 33.8 g/dL (31.6-35.5); Mean Corpuscular Hemoglobin 29.7 pg (28.0-33.3); Mean Corpuscular Volume 87.9 fL (83.0-100.0); Mean Platelet Volume 9.3 fL (9.4-12.4); Monocytes % 7.6 %; Neutrophils # 11.9 K/mcL (1.6-8.9); Platelet Count 148 K/mcL (140-400); Red Blood Count 4.38 M/mcL (3.82-4.97); Red Cell Distribution Width 13.7 % (11.5-14.5); Segmented Neutrophils % 89.8 %
[2018-05-26 04:22] LABS: INR 1.1; Prothrombin Time 12.6 Seconds (9.4-12.1)
[2018-05-26 04:29] LABS: BUN/Creatinine Ratio 19 (6-26); Blood Urea Nitrogen 13 mg/dL (6-20); Calcium 8.4 mg/dL (8.6-10.3); Carbon Dioxide 23 mEq/L (23-29); Chloride 111 mEq/L (98-107); Glucose 118 mg/dL (70-105); Magnesium 2.6 mg/dL (1.6-2.6); Osmolality,Calculated 291 (280-300); Potassium 3.9 mEq/L (3.5-5.1); Sodium 140 mEq/L (136-145); eGFR For Non-African Americans > 60 (> 60)
[2018-05-26] MEDS: Ringers Solution, Lactated 1,000 ML IVC SCH (05:40)
[2018-05-26] MEDS: *HR* OxyCODONE/APAP 5/325 TABLET PO PRN ×4 (05:42→18:45)
--- NOTE | 2018-05-26 07:03 | Cardiothoracic Progress Note ---
Date of Encounter: 05/26/18 Time of Encounter: 07:00 - Assessment and plan (1) CAD (coronary artery disease) Current Visit: Yes Status: Acute The patient has significant COPD and was on 3 L of oxygen continuously prior to admission. We will leave her in the ICU today for pulmonary toilet. She was just recently extubated. We will leave her chest tubes until tomorrow. The patient requests that we leave her Gottlieb catheter until the chest tubes are removed. We will discontinue her IV fluids, arterial line and [place] catheter. The patient did receive 2 units of packed red blood cells during surgery for a low hemoglobin. She does have the usual, expected acute postoperative blood loss anemia. Qualifiers: Coronary Disease-Associated Artery/Lesion type: [place] artery [place] vs. transplanted heart: [place] heart Associated angina: with unstable angina Qualified Code(s): I25.110 - Atherosclerotic heart disease of [place] coronary artery with unstable angina pectoris - Subjective Interval history: The patient is extubated and doing well. She has mild postoperative pain. Vital Signs, Last 4 Hours Temp Pulse Resp BP Pulse Ox 05/26/18 06:54 105 22 127/65 94 05/26/18 05:55 105 22 108/61 94 05/26/18 05:00 105 22 120/64 94 05/26/18 04:00 99.8 F H 109 22 111/60 94 05/26/18 03:53 20 92 05/26/18 03:00 104 12 115/57 92 Oxgyen Flow Rate Oxygen Flow Rate (LPM) 5 Clinical Data, last 8 Hours Output, Chest Tube Drainage 0 Amount [Mediastinal #4] Output, Chest Tube Drainage 0 Amount [Mediastinal #4] Output, Chest Tube Drainage 0 Amount [Mediastinal #4] Output, Chest Tube Drainage 5 Amount [Mediastinal #4] Output, Chest Tube Drainage 0 Amount [Mediastinal #4] Output, Chest Tube Drainage 0 Amount [Mediastinal #4] Output, Chest Tube Drainage 5 Amount [Mediastinal #4] Output, Chest Tube Drainage 0 Amount [Mediastinal #4] Output, Chest Tube Drainage 5 Amount [Mediastinal #4] Output, Chest Tube Drainage 15 Amount [Mediastinal #3] Output, Chest Tube Drainage 10 Amount [Mediastinal #3] Output, Chest Tube Drainage 0 Amount [Mediastinal #3] Output, Chest Tube Drainage 5 Amount [Mediastinal #3] Output, Chest Tube Drainage 5 Amount [Mediastinal #3] Output, Chest Tube Drainage 0 Amount [Mediastinal #3] Output, Chest Tube Drainage 5 Amount [Mediastinal #3] Output, Chest Tube Drainage 0 Amount [Mediastinal #3] Output, Chest Tube Drainage 10 Amount [Mediastinal #3] Output, Chest Tube Drainage 0 Amount [Mediastinal #2] Output, Chest Tube Drainage 30 Amount [Mediastinal #2] Output, Chest Tube Drainage 0 Amount [Mediastinal #2] Output, Chest Tube Drainage 15 Amount [Mediastinal #2] Output, Chest Tube Drainage 20 Amount [Mediastinal #2] Output, Chest Tube Drainage 0 Amount [Mediastinal #2] Output, Chest Tube Drainage 10 Amount [Mediastinal #2] Output, Chest Tube Drainage 5 Amount [Mediastinal #2] Output, Chest Tube Drainage 15 Amount [Mediastinal #2] Output, Chest Tube Drainage 5 Amount [Mediastinal #1] Output, Chest Tube Drainage 5 Amount [Mediastinal #1] Output, Chest Tube Drainage 0 Amount [Mediastinal #1] Output, Chest Tube Drainage 5 Amount [Mediastinal #1] Output, Chest Tube Drainage 0 Amount [Mediastinal #1] Output, Chest Tube Drainage 0 Amount [Mediastinal #1] Output, Chest Tube Drainage 5 Amount [Mediastinal #1] Output, Chest Tube Drainage 5 Amount [Mediastinal #1] Output, Chest Tube Drainage 5 Amount [Mediastinal #1] Weight 05/24/18 05/25/18 05/26/18 23:59 23:59 23:59 Weight 61.4 kg 61 kg Lungs are clear to percussion and auscultation. Heart is in a normal sinus rhythm. All incisions are healing well without signs of infection and the sternum is stable. Chest x-ray looks good. - Labs 05/26/18 03:00 05/26/18 03:00 Lab Results, Last 24 hours 05/25/18 05/25/18 05/25/18 15:20 15:20 15:20 WBC 15.5 H D Hgb 12.2 Hct 35.6 Plt Count 152 INR 1.2 APTT 35.4 Sodium 139 Potassium 3.3 L Chloride 117 H Carbon Dioxide 27 BUN 8 Creatinine 0.52 L Glucose 105 Calcium 7.5 L Magnesium 3.6 H 05/25/18 05/26/18 05/26/18 19:55 03:00 03:00 WBC 13.2 H Hgb 13.0 Hct 38.5 Plt Count 148 INR 1.1 APTT 30.0 Sodium Potassium 4.2 D Chloride Carbon Dioxide BUN Creatinine Glucose Calcium Magnesium 05/26/18 03:00 WBC Hgb Hct Plt Count INR APTT Sodium 140 Potassium 3.9 Chloride 111 H Carbon Dioxide 23 BUN 13 Creatinine 0.67 Glucose 118 H Calcium 8.4 L Magnesium 2.6 - VTE Documentation of Mechanical Device: Graduated compression elastic hosiery Consult Discharge Plan - Plan Referrals: Cassie Gonzalez CNP [Primary Care Provider] - 06/15/18 3:30 pm
[2018-05-26] MEDS: niCARdipine 40 MG/200 ML MLS IVC SCH ×2 (07:46→15:22)
[2018-05-26] MEDS: Aspirin Enteric Coated 325 MG Tablet PO SCH (08:58)
[2018-05-26] MEDS: Loratadine 10 MG TABLET PO SCH (08:58)
[2018-05-26] MEDS: Chlorhexidine Rinse 15 ML MOUTHWASH MM SCH ×2 (08:58→20:49)
[2018-05-26] MEDS: Isosorbide MONOnitrate (24 HR) 30 MG TAB.ER.24H PO SCH (08:58)
[2018-05-26] MEDS: Magnesium Oxide 400 MG TABLET PO SCH (08:58)
[2018-05-26] MEDS: (Fluticasone Furoate [Arnuity Ellipta] 1 PUFF) IH SCH (09:09)
[2018-05-26] MEDS: (Olodaterol Hcl [Striverdi Respimat] 2 PUFF) IH SCH (09:09)
[2018-05-26] MEDS: *HR* HYDROcodone/Acet 5/325 mg TABLET PO PRN ×2 (13:32→20:49)
[2018-05-26] MEDS: Norepinephrine 4 MG in D5% in Water 250 ML IVC SCH (15:22)
[2018-05-26] MEDS: Nitroglycerin 25 MG/250 ML INFUS..BTL IVC SCH (17:43)
[2018-05-27 03:56] LABS: Basophils % 0.1 %; Eosinophils % 0.1 %; Hematocrit 36.1 % (35.3-44.9); Hemoglobin 11.9 g/dL (11.5-15.4); Immature Granulocytes % 0.5 % (0-4); Lymphocytes # 1.1 K/mcL (0.6-4.6); Lymphocytes % 8.5 %; Mean Corpuscular Hemoglobin 29.5 pg (28.0-33.3); Mean Corpuscular Volume 89.6 fL (83.0-100.0); Mean Platelet Volume 9.5 fL (9.4-12.4); Monocytes % 7.9 %; Neutrophils # 10.7 K/mcL (1.6-8.9); Platelet Count 132 K/mcL (140-400); Red Blood Count 4.03 M/mcL (3.82-4.97); Segmented Neutrophils % 82.9 %
[2018-05-27 04:20] LABS: BUN/Creatinine Ratio 30 (6-26); Blood Urea Nitrogen 16 mg/dL (6-20); Calcium 8.5 mg/dL (8.6-10.3); Carbon Dioxide 23 mEq/L (23-29); Chloride 107 mEq/L (98-107); Glucose 107 mg/dL (70-105); Osmolality,Calculated 288 (280-300); Potassium 4.1 mEq/L (3.5-5.1); Sodium 138 mEq/L (136-145); eGFR For Non-African Americans > 60 (> 60)
--- NOTE | 2018-05-27 07:16 | Cardiothoracic Progress Note ---
Date of Encounter: 05/27/18 Time of Encounter: 07:14 - Assessment and plan (1) CAD (coronary artery disease) Current Visit: Yes Status: Acute The patient remained hemodynamically stable overnight. The chest tubes were removed. The patient will be transferred to a 2N stepdown unit when a bed is available. The assessment and plan as outlined above was discussed with the patient and/or family members who expressed understanding and agreement. All questions were answered. Qualifiers: Coronary Disease-Associated Artery/Lesion type: [place] artery [place] vs. transplanted heart: [place] heart Associated angina: with unstable angina Qualified Code(s): I25.110 - Atherosclerotic heart disease of [place] coronary artery with unstable angina pectoris - Subjective Procedure(s) Performed: POD#2 S/P CABG2 Interval history: The patient remained hemodynamically stable overnight. She is breathing comfortably with supplemental oxygen. She has no complaints. Vital Signs, Last 4 Hours Temp Pulse Resp BP Pulse Ox 05/27/18 06:00 97 16 99/74 94 05/27/18 05:00 97 18 118/73 94 05/27/18 04:00 97 20 115/79 92 05/27/18 03:46 22 92 05/27/18 03:22 99.5 F Oxgyen Flow Rate Oxygen Flow Rate (LPM) 5 Clinical Data, last 8 Hours Output, Chest Tube Drainage 11 Amount [Mediastinal #4] Output, Chest Tube Drainage 16 Amount [Mediastinal #3] Output, Chest Tube Drainage 40 Amount [Mediastinal #2] Output, Chest Tube Drainage 5 Amount [Mediastinal #1] Weight 05/25/18 05/26/18 05/27/18 23:59 23:59 23:59 Weight 61 kg - Physical Examination General: Conversant, No Apparent Distress Neck: No JVD, Normal carotid pulses Cardiac: Reg Rate and Rhythm, Normal S1 and S2, No Murmur Incision: No signs of infection, Dry/intact dressing Sternum: Stable Chest tubes: Minimal drainage, Other (No air leak) Pacing Wires: In place Lungs: Normal Breath Sounds, No Wheeze, Rales, Rhonchi Neuro: Alert and responsive, No focal deficits noted Vascular: Normal capillary refill Extremities: No Clubbing, No Cyanosis, No Edema - Labs 05/27/18 03:45 05/27/18 03:45 Lab Results, Last 24 hours 05/27/18 05/27/18 03:45 03:45 WBC 12.8 H Hgb 11.9 Hct 36.1 Plt Count 132 L Sodium 138 Potassium 4.1 Chloride 107 Carbon Dioxide 23 BUN 16 Creatinine 0.53 L Glucose 107 H Calcium 8.5 L - VTE Documentation of Mechanical Device: Graduated compression elastic hosiery Consult Discharge Plan - Plan Referrals: Cassie Gonzalez, LESTER [Primary Care Provider] - 06/15/18 3:30 pm
[2018-05-27] MEDS ORDERED: D5% in Water 1,000 ML IVC PRN ×2 (07:21→13:23)
[2018-05-27] MEDS ORDERED: Dextrose Gel 15 GM/37.5 ML TUBE PO PRN ×4 (07:21→13:23)
[2018-05-27] MEDS ORDERED: *HR* Dextrose 50 % in Water (Syg) 50 ML SYRINGE IVP PRN ×3 (07:21→13:23)
[2018-05-27] MEDS ORDERED: Insulin LISPRO 300 UNITS/3 ML VIAL SQ SCH ×2 (07:30→21:00)
[2018-05-27] MEDS: niCARdipine 40 MG/200 ML MLS IVC SCH (07:37)
[2018-05-27] MEDS: Chlorhexidine Rinse 15 ML MOUTHWASH MM SCH ×2 (07:56→20:18)
[2018-05-27] MEDS: Loratadine 10 MG TABLET PO SCH (07:57)
[2018-05-27] MEDS: Aspirin Enteric Coated 325 MG Tablet PO SCH (07:57)
[2018-05-27] MEDS: (Fluticasone Furoate [Arnuity Ellipta] 1 PUFF) IH SCH (07:59)
[2018-05-27] MEDS: Magnesium Oxide 400 MG TABLET PO SCH (07:59)
[2018-05-27] MEDS: (Olodaterol Hcl [Striverdi Respimat] 2 PUFF) IH SCH (07:59)
[2018-05-27] MEDS: *HR* HYDROcodone/Acet 5/325 mg TABLET PO PRN (08:18)
[2018-05-27] MEDS: Ipratropium/Albuterol Neb 3 ML IH SCH ×3 (08:26→15:31)
[2018-05-27] MEDS ORDERED: *HR* OxyCODONE/APAP 5/325 TABLET PO PRN (10:27)
[2018-05-27] MEDS ORDERED: *HR* LORazepam 0.5 MG TABLET PO PRN (10:27)
[2018-05-27] MEDS ORDERED: Insulin Regular, Human 100 UNIT/ML IV PRN (10:27)
[2018-05-27] MEDS ORDERED: *HR* Promethazine 25 MG/ML VIAL IVP PRN ×2 (10:27→13:35)
[2018-05-27] MEDS ORDERED: Acetaminophen 325 MG TABLET PO PRN ×2 (10:27→13:20)
[2018-05-27] MEDS ORDERED: Fluticasone Propionate Nasal 50 MCG/SPRAY BOTTLE NS PRN (10:27)
[2018-05-27] MEDS ORDERED: Ondansetron 4 MG/2 ML VIAL IVP PRN ×2 (10:27→13:30)
[2018-05-27] MEDS ORDERED: Nitroglycerin 0.4 MG TAB.SUBL SL PRN ×2 (10:27→13:29)
[2018-05-27] MEDS ORDERED: Naloxone 0.4 MG/ML INJ IVP PRN ×2 (10:27→13:29)
[2018-05-27] MEDS ORDERED: NON-FORMULARY MEDICATION 1 EACH EACH (Oxygen [Oxygen] 3 L) NS SCH (10:52)
[2018-05-27] MEDS: Isosorbide MONOnitrate (24 HR) 30 MG TAB.ER.24H PO SCH (11:46)
[2018-05-27] MEDS: Nitroglycerin 25 MG/250 ML INFUS..BTL IVC SCH (11:46)
[2018-05-27] MEDS: Lactobacillus 1 EACH CAP.SPRINK PO SCH (11:59)
[2018-05-27] MEDS: Insulin LISPRO 300 UNITS/3 ML VIAL SQ SCH ×3 (14:54→20:10)
[2018-05-27] MEDS ORDERED: Ipratropium/Albuterol Neb 3 ML IH SCH (16:00)
[2018-05-27] MEDS: *HR* OxyCODONE/APAP 5/325 TABLET PO PRN ×3 (16:34→23:31)
[2018-05-27] MEDS ORDERED: Chlorhexidine Rinse 15 ML MOUTHWASH MM SCH (21:00)
[2018-05-28] MEDS: Ipratropium/Albuterol Neb 3 ML IH SCH ×5 (03:29→21:40)
--- NOTE | 2018-05-28 07:18 | Cardiothoracic Progress Note ---
Date of Encounter: 05/28/18 Time of Encounter: 07:17 - Assessment and plan (1) CAD (coronary artery disease) Current Visit: Yes Status: Acute The patient remained hemodynamically stable overnight. She will begin ambulating in the hallways today. The assessment and plan as outlined above was discussed with the patient and/or family members who expressed understanding and agreement. All questions were answered. Qualifiers: Coronary Disease-Associated Artery/Lesion type: [place] artery [place] vs. transplanted heart: [place] heart Associated angina: with unstable angina Qualified Code(s): I25.110 - Atherosclerotic heart disease of [place] coronary artery with unstable angina pectoris - Subjective Procedure(s) Performed: POD#3 S/P CABG2 Interval history: The patient remained hemodynamically stable overnight. She is breathing comfortably with supplemental oxygen. She has no complaints. Vital Signs, Last 4 Hours Temp Pulse Resp BP Pulse Ox 05/28/18 06:57 98.2 F 91 20 136/76 93 05/28/18 04:50 60 05/28/18 04:20 98.3 F 85 20 106/71 94 05/28/18 03:50 20 93 Oxgyen Flow Rate Oxygen Flow Rate (LPM) 3 Clinical Data, last 8 Hours Output, Urine Amount 300 Output, Urine Amount 0 Weight 05/26/18 05/27/18 05/28/18 23:59 23:59 23:59 Weight 65.4 kg - Physical Examination General: Conversant, No Apparent Distress Neck: No JVD, Normal carotid pulses Cardiac: Reg Rate and Rhythm, Normal S1 and S2, No Murmur Incision: No signs of infection, Dry/intact dressing Sternum: Stable Pacing Wires: In place Lungs: Normal Breath Sounds, No Wheeze, Rales, Rhonchi Neuro: Alert and responsive, No focal deficits noted Vascular: Normal capillary refill Extremities: No Clubbing, No Cyanosis, No Edema - Labs 05/27/18 03:45 05/27/18 03:45 - VTE Documentation of Mechanical Device: Graduated compression elastic hosiery Consult Discharge Plan - Plan Referrals: Cassie Gonzalez CNP [Primary Care Provider] - 06/15/18 3:30 pm
[2018-05-28] MEDS: Insulin LISPRO 300 UNITS/3 ML VIAL SQ SCH ×4 (08:13→23:09)
[2018-05-28] MEDS: Loratadine 10 MG TABLET PO SCH (08:21)
[2018-05-28] MEDS: Lactobacillus 1 EACH CAP.SPRINK PO SCH (08:21)
[2018-05-28] MEDS: *HR* OxyCODONE/APAP 5/325 TABLET PO PRN ×4 (08:21→23:13)
[2018-05-28] MEDS: Aspirin Enteric Coated 325 MG Tablet PO SCH (08:21)
[2018-05-28] MEDS: Magnesium Oxide 400 MG TABLET PO SCH (08:21)
[2018-05-28] MEDS: Chlorhexidine Rinse 15 ML MOUTHWASH MM SCH ×2 (08:22→19:41)
[2018-05-28] MEDS: (Fluticasone Furoate [Arnuity Ellipta] 1 PUFF) IH SCH (08:33)
[2018-05-28] MEDS: (Olodaterol Hcl [Striverdi Respimat] 2 PUFF) IH SCH (08:33)
[2018-05-28] MEDS ORDERED: Magnesium Oxide 400 MG TABLET PO SCH (09:00)
[2018-05-28] MEDS ORDERED: Patient Taking Own Medication 1 EACH PO SCH ×2 (09:00→13:45)
[2018-05-28] MEDS ORDERED: Loratadine 10 MG TABLET PO SCH (09:00)
[2018-05-28] MEDS ORDERED: Aspirin Enteric Coated 325 MG Tablet PO SCH (09:00)
[2018-05-28] MEDS ORDERED: Patient Taking Own Medication 1 EACH IH SCH ×2 (09:00)
[2018-05-29] MEDS: Ipratropium/Albuterol Neb 3 ML IH SCH ×3 (03:59→16:02)
[2018-05-29] MEDS: (Olodaterol Hcl [Striverdi Respimat] 2 PUFF) IH SCH (07:23)
[2018-05-29] MEDS: (Fluticasone Furoate [Arnuity Ellipta] 1 PUFF) IH SCH (07:23)
--- NOTE | 2018-05-29 07:48 | Cardiothoracic Progress Note ---
Date of Encounter: 05/29/18 Time of Encounter: 07:46 - Assessment and plan (1) CAD (coronary artery disease) Current Visit: Yes Status: Acute The patient remained hemodynamically stable overnight. She began ambulating in the hallways yesterday without difficulty. The assessment and plan as outlined above was discussed with the patient and/or family members who expressed understanding and agreement. All questions were answered. Qualifiers: Coronary Disease-Associated Artery/Lesion type: [place] artery [place] vs. transplanted heart: [place] heart Associated angina: with unstable angina Qualified Code(s): I25.110 - Atherosclerotic heart disease of [place] coronary artery with unstable angina pectoris - Subjective Procedure(s) Performed: POD#4 S/P CABG2 Interval history: The patient remained hemodynamically stable overnight. She is breathing comfortably with supplemental oxygen. She has no complaints. Vital Signs, Last 4 Hours Temp Pulse Resp BP Pulse Ox 05/29/18 04:48 98 F 80 18 135/84 98 05/29/18 04:22 98 F 82 18 135/84 98 05/29/18 03:57 18 96 Oxgyen Flow Rate Oxygen Flow Rate (LPM) 4 Weight 05/27/18 05/28/18 05/29/18 23:59 23:59 23:59 Weight 65.4 kg 64.5 kg - Physical Examination General: Conversant, No Apparent Distress Neck: No JVD, Normal carotid pulses Cardiac: Reg Rate and Rhythm, Normal S1 and S2, No Murmur Incision: No signs of infection, Dry/intact dressing Sternum: Stable Pacing Wires: In place Lungs: Normal Breath Sounds, No Wheeze, Rales, Rhonchi Neuro: Alert and responsive, No focal deficits noted Vascular: Normal capillary refill Extremities: No Clubbing, No Cyanosis, No Edema - Labs 05/27/18 03:45 05/27/18 03:45 - VTE Documentation of Mechanical Device: Graduated compression elastic hosiery Consult Discharge Plan - Plan Referrals: Cassie Gonzalez CNP [Primary Care Provider] - 06/15/18 3:30 pm
[2018-05-29] MEDS: Aspirin Enteric Coated 325 MG Tablet PO SCH (08:14)
[2018-05-29] MEDS: Lactobacillus 1 EACH CAP.SPRINK PO SCH (08:14)
[2018-05-29] MEDS: Loratadine 10 MG TABLET PO SCH (08:14)
[2018-05-29] MEDS: Magnesium Oxide 400 MG TABLET PO SCH (08:14)
[2018-05-29] MEDS: *HR* OxyCODONE/APAP 5/325 TABLET PO PRN ×4 (08:14→21:56)
[2018-05-29] MEDS: Chlorhexidine Rinse 15 ML MOUTHWASH MM SCH ×2 (08:15→21:56)
[2018-05-29] MEDS: Insulin LISPRO 300 UNITS/3 ML VIAL SQ SCH ×4 (08:17→21:53)
--- NOTE | 2018-05-29 12:05 | Electrocardiograph Report ---
[place] [id number] Test Date: 2018-05-25 Pat Name: Edna Davidson Department: 109 Room: 2N11 Gender: F [employer]: RT : 1960 Requested By: Kenneth Mohan Order Number: [id number] Reading MD: Hernando Willis Measurements Intervals [place] Rate: 74 P: 79 HI: 181 QRS: 51 QRSD: 124 T: 78 QT: 466 QTc: 493 Interpretive Statements SINUS RHYTHM MODERATE INTRAVENTRICULAR CONDUCTION DELAY PROLONGED QT INTERVAL Electronically Signed On 05-29-2018 12:03:38 EDT by Hernando Willis
--- NOTE | 2018-05-29 14:29 | Electrocardiograph Report ---
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
[2018-05-29] MEDS: *HR* LORazepam 0.5 MG TABLET PO PRN (23:36)
[2018-05-30] MEDS: Insulin LISPRO 300 UNITS/3 ML VIAL SQ SCH ×4 (07:38→22:01)
[2018-05-30] MEDS: Chlorhexidine Rinse 15 ML MOUTHWASH MM SCH ×2 (07:49→22:01)
[2018-05-30] MEDS: Aspirin Enteric Coated 325 MG Tablet PO SCH (07:49)
[2018-05-30] MEDS: Loratadine 10 MG TABLET PO SCH (07:50)
[2018-05-30] MEDS: Magnesium Oxide 400 MG TABLET PO SCH (07:50)
[2018-05-30] MEDS: Lactobacillus 1 EACH CAP.SPRINK PO SCH (07:50)
[2018-05-30] MEDS: *HR* OxyCODONE/APAP 5/325 TABLET PO PRN ×4 (07:50→22:01)
[2018-05-30] MEDS: (Fluticasone Furoate [Arnuity Ellipta] 1 PUFF) IH SCH (07:51)
[2018-05-30] MEDS: (Olodaterol Hcl [Striverdi Respimat] 2 PUFF) IH SCH (07:52)
--- NOTE | 2018-05-30 12:16 | Cardiothoracic Progress Note ---
Date of Encounter: 05/30/18 Time of Encounter: 12:15 - Assessment and plan (1) CAD (coronary artery disease) Current Visit: Yes Status: Acute The patient remained hemodynamically stable overnight. She began ambulating in the hallways yesterday without difficulty. She is asking to be transferred to a swing bed at [facility] as a bridge to home. The assessment and plan as outlined above was discussed with the patient and/or family members who expressed understanding and agreement. All questions were answered. Qualifiers: Coronary Disease-Associated Artery/Lesion type: [place] artery [place] vs. transplanted heart: [place] heart Associated angina: with unstable angina Qualified Code(s): I25.110 - Atherosclerotic heart disease of [place] coronary artery with unstable angina pectoris - Subjective Procedure(s) Performed: POD#5 S/P CABG2 Interval history: The patient remained hemodynamically stable overnight. She is breathing comfortably with supplemental oxygen. She has no complaints. Vital Signs, Last 4 Hours Temp Pulse Resp BP Pulse Ox 05/30/18 11:14 98.0 F 88 18 122/55 97 05/30/18 10:13 16 96 Oxgyen Flow Rate Oxygen Flow Rate (LPM) 3 Weight 05/28/18 05/29/18 05/30/18 23:59 23:59 23:59 Weight 64.5 kg 66 kg - Physical Examination General: Conversant, No Apparent Distress Neck: No JVD, Normal carotid pulses Incision: No signs of infection, Dry/intact dressing Sternum: Stable Pacing Wires: In place Lungs: Normal Breath Sounds, No Wheeze, Rales, Rhonchi Neuro: Alert and responsive, No focal deficits noted Vascular: Normal capillary refill Extremities: No Clubbing, No Cyanosis, No Edema - Labs 05/27/18 03:45 05/27/18 03:45 - VTE Documentation of Mechanical Device: Graduated compression elastic hosiery Consult Discharge Plan - Plan Referrals: Cassie Gonzalez CNP [Primary Care Provider] - 06/06/18 11:00 am Minal Nguyen MD [Partnered Physician] - 07/07/18 10:30 am Kenneth Mohan MD [Partnered Physician] - 06/15/18 1:45 pm
[2018-05-30] MEDS: *HR* LORazepam 0.5 MG TABLET PO PRN (17:03)
--- NOTE | 2018-05-31 06:10 | Cardiothoracic Progress Note ---
Date of Encounter: 05/31/18 Time of Encounter: 06:08 - Assessment and plan (1) CAD (coronary artery disease) Current Visit: Yes Status: Acute The patient remained hemodynamically stable overnight. She began ambulating in the hallways yesterday without difficulty. She is not eligible for the swing bed at [facility]. The clinical social work therapist will attempt to find an inpatient rehabilitation center suitable for the patient. She will probably be discharged in the morning if she remains stable. The assessment and plan as outlined above was discussed with the patient and/or family members who expressed understanding and agreement. All questions were answered. Qualifiers: Coronary Disease-Associated Artery/Lesion type: [place] artery [place] vs. transplanted heart: [place] heart Associated angina: with unstable angina Qualified Code(s): I25.110 - Atherosclerotic heart disease of [place] coronary artery with unstable angina pectoris - Subjective Procedure(s) Performed: POD#6 S/P CABG2 Interval history: The patient remained hemodynamically stable overnight. She is breathing comfortably with supplemental oxygen. She has been able to ambulate in the hallways without difficulty. She has no complaints. Vital Signs, Last 4 Hours Temp Pulse Resp BP Pulse Ox 05/31/18 04:25 81 05/31/18 03:41 17 96 05/31/18 03:29 98.4 F 81 17 106/72 96 Oxgyen Flow Rate Oxygen Flow Rate (LPM) 3 Clinical Data, last 8 Hours Output, Urine Amount 400 Output, Urine Amount 200 Weight 05/29/18 05/30/18 05/31/18 23:59 23:59 23:59 Weight 64.5 kg 66 kg 66.2 kg - Physical Examination HEENT: Atraumatic, Normocephaly, Trachea midline Cardiac: Reg Rate and Rhythm, Normal S1 and S2, No Murmur Incision: No signs of infection, Dry/intact dressing Sternum: Stable Pacing Wires: In place Lungs: Normal Breath Sounds, No Wheeze, Rales, Rhonchi Neuro: Alert and responsive, No focal deficits noted Vascular: Normal capillary refill Extremities: No Clubbing, No Cyanosis, No Edema - Labs 05/27/18 03:45 05/27/18 03:45 - VTE Documentation of Mechanical Device: Graduated compression elastic hosiery Consult Discharge Plan - Plan Referrals: Cassie Gonzalez CNP [Primary Care Provider] - 06/06/18 11:00 am Minal Nguyen MD [Partnered Physician] - 07/07/18 10:30 am Kenneth Mohan MD [Partnered Physician] - 06/15/18 1:45 pm
[2018-05-31] MEDS: Chlorhexidine Rinse 15 ML MOUTHWASH MM SCH ×2 (07:54→20:37)
[2018-05-31] MEDS: Lactobacillus 1 EACH CAP.SPRINK PO SCH (07:55)
[2018-05-31] MEDS: *HR* OxyCODONE/APAP 5/325 TABLET PO PRN ×3 (07:55→22:12)
[2018-05-31] MEDS: Aspirin Enteric Coated 325 MG Tablet PO SCH (07:55)
[2018-05-31] MEDS: Loratadine 10 MG TABLET PO SCH (07:55)
[2018-05-31] MEDS: Magnesium Oxide 400 MG TABLET PO SCH (07:55)
[2018-05-31] MEDS: Insulin LISPRO 300 UNITS/3 ML VIAL SQ SCH ×4 (07:55→20:38)
[2018-05-31] MEDS: (Fluticasone Furoate [Arnuity Ellipta] 1 PUFF) IH SCH (07:57)
[2018-05-31] MEDS: (Olodaterol Hcl [Striverdi Respimat] 2 PUFF) IH SCH (07:57)
[2018-05-31] MEDS: *HR* LORazepam 0.5 MG TABLET PO PRN (20:37)
--- NOTE | 2018-06-01 07:26 | Discharge Summary ---
Date of Encounter: 06/01/18 Time of Encounter: 07:21 - Discharge Diagnosis (1) CAD (coronary artery disease) Priority: Primary Status: Acute Qualifiers: Coronary Disease-Associated Artery/Lesion type: [place] artery [place] vs. transplanted heart: [place] heart Associated angina: with unstable angina Qualified Code(s): I25.110 - Atherosclerotic heart disease of [place] coronary artery with unstable angina pectoris - Hospital Course Hospital course: Ms. Davidson is a 57 year old hypertensive lady with known CAD and COPD. Her cardiac history dates back to 2002 which time she suffered a myocardial infarction and required RCA stent placement. She recently developed some exertional substernal chest pain. She underwent a Stress test which was positive for ischemia. Subsequent cardiac catheterization performed 05/23/2018 revealed severe two-vessel CAD and it LVEF 65%. In particular, she has a 50% left main lesion, a 30% proximal LAD lesion, a 20% proximal D1 lesion, a 99% ostial LCx lesion, a 30% mid RCA lesion, and a 40% distal RCA lesion. She was recommended for CABG. The patient underwent CABG 2 on 05/25/2018. Her postoperative course was uncomplicated. The patient was transferred to the stepdown unit he was ambulating without difficulty, though she did require supplemental oxygen for her oxygen dependent COPD. She was discharged to an inpatient rehabilitation facility on POD #7. - Time Spent with Patient Total time spent providing and/or coordinating discharge services: - Discharge Medications Prescriptions: OxyCODONE/APAP 5/325 [Percocet 5/325 MG] 1 each PO Q4HR PRN 7 Days #42 tablet PRN Reason: Pain Atorvastatin [Lipitor] 80 mg PO HS #30 tablet Metoprolol [Lopressor] 12.5 mg PO BID #60 tablet Home Medications: Aspirin [Ecotrin] 325 mg PO DAILY 05/23/18 [History] Cetirizine HCl [Zyrtec] 10 mg PO DAILY PRN 05/23/18 [History] Fluticasone Furoate [Arnuity Ellipta] 1 puff IH DAILY 05/23/18 [History] Fluticasone Propionate Nasal [Flonase] 1 spray NS DAILY PRN 05/23/18 [History] Hydrocodone/Acetaminophen [Hydrocodon-Acetaminophen 5-325] 1 each PO TID PRN [History] Ipratropium/Albuterol Neb [Duoneb] 3 ml IH Q6HR PRN 05/23/18 [History] LORazepam [Ativan] 0.5 mg PO BID PRN 05/23/18 [History] Lactobacillus Combination No.8 [Adult Probiotic] 1 cap PO DAILY 05/23/18 [ History] Lisinopril [Zestril] 2.5 mg PO DAILY PRN 05/23/18 [History] Magnesium Oxide [Magnesium] 400 mg PO DAILY 05/23/18 [History] Montelukast [Singulair] 10 mg PO DAILY 05/23/18 [History] Olodaterol HCl [Striverdi Respimat] 2 puff IH DAILY 05/23/18 [History] Oxygen 3 l NS AD 05/23/18 [History] Sertraline [Zoloft] 100 mg PO HS 05/23/18 [History] Zolpidem [Ambien] 10 mg PO HS 05/23/18 [History] Atorvastatin [Lipitor] 80 mg PO HS #30 tablet 06/01/18 [Rx] Metoprolol [Lopressor] 12.5 mg PO BID #60 tablet 06/01/18 [Rx] OxyCODONE/APAP 5/325 [Percocet 5/325 MG] 1 each PO Q4HR PRN 7 Days #42 tablet [Rx] Allergies/Adverse Reactions: 3 Allergy/AdvReac Type Severity Reaction Status Date / Time No Known Allergies Allergy Verified 05/23/18 18:10 Date of admission: 05/24/18 15:19 Primary care physician: Cassie Gonzalez CNP Consults: 05/23/18 17:43 Consult to Cardiothoracic Surgery [CONS] Routine Consulting Provider: Cardiothoracic Surgery Joselyn Reason for Consult: eval for CABG Call Completed: Yes 05/25/18 15:08 Consult to Cardiac Rehabilitation-Phase1 [CONS] Routine Comment: Reason for Consult: Post open heart Call Completed: Yes Consult to Audio/Video Engineer [CONS] Routine Reason for SW Consult: open heart/ pt wants [place] swing bed at discharge 05/30/18 12:17 Consult to Physical Therapy [CONS] Routine Comment: Evaluate, develop and implement POC Reason for Consult: post op CABG Does patient have active BEDREST order?: No Is patient medically & hemodynamically stable?: Yes Patient assessed for mobility or mobilized this visit?: Yes OT [Consult to Occupational Therapy] [CONS] Routine Comment: Evaluate, develop and implement POC Reason for Consult: post op CABG Does patient have active BEDREST order?: No Is patient medically & hemodynamically stable?: Yes Patient assessed for mobility or mobilized this visit?: Yes Procedure(s) Performed: 1. Cardiac catheterization performed 05/23/2018. 2. CABG 2 (SON to LAD, SVG to OM1) performed 05/25/2018. 3. Endoscopic vein harvesting, greater saphenous vein from right lower extremity performed 05/25/2018. Discharging clinician: Therese Yates Anticipated date of discharge: 06/01/18 Physical Examination Vital Signs, Last 4 Hours Temp Pulse Resp BP Pulse Ox 06/01/18 07:08 98.4 F 87 16 105/62 95 06/01/18 03:46 16 94 General: Conversant, No Apparent Distress Neck: No JVD, Normal carotid pulses Cardiac: Reg Rate and Rhythm, Normal S1 and S2, No Murmur Lungs: Normal Breath Sounds, No Wheeze, Rales, Rhonchi Neuro: Alert and responsive, No focal deficits noted Vascular: Normal capillary refill Abdomen: Soft, Non-tender Skin: No rashes noted on visualized skin Extremities: No Clubbing, No Cyanosis, No Edema - Patient Status Disposition: Transfer Inpatient Rehab Fac Condition: Good Functional capacity at discharge: independent ambulation Overall status at discharge: patient is progressing back to baseline - Discharge Instructions Follow Up With: Cassie Gonzalez CNP [Primary Care Provider] - 06/06/18 11:00 am Minal Nguyen MD [Partnered Physician] - 07/07/18 10:30 am Kenneth Mohan MD [Partnered Physician] - 06/15/18 1:45 pm - Diet and Activity Activity: sternal precautions, no driving for four weeks, no lifting greater than 10 pounds for eight weeks, wear oxygen at all times Diet: low fat, low cholesterol Open Heart Registry Aspirin Cont/Prescribed at DC: Yes Beta [place] Cont/Prescribed at DC: Yes Statin Cont/Prescribed at DC: Yes DANIEL/ARB Cont/Prescribed at DC: Yes - VTE Documentation of Mechanical Device: Graduated compression elastic hosiery
[2018-06-01] MEDS: Insulin LISPRO 300 UNITS/3 ML VIAL SQ SCH ×3 (07:30→17:00)
--- NOTE | 2018-06-01 07:33 | Physician Discharge Referral ---
ExtendedCare Referral Info Provider in Charge: Kenneth Mohan MD Provider in Charge after Transfer: PCP Institutional Level of Care: Skilled - Diagnosis (1) CAD (coronary artery disease) Priority: Primary Status: Acute Prognosis: Good Aware of Diagnosis: Patient Aware of Prognosis: Patient - Transfer Medications Prescriptions: OxyCODONE/APAP 5/325 [Percocet 5/325 MG] 1 each PO Q4HR PRN 7 Days #42 tablet PRN Reason: Pain Atorvastatin [Lipitor] 80 mg PO HS #30 tablet Metoprolol [Lopressor] 12.5 mg PO BID #60 tablet Home Medications: Aspirin [Ecotrin] 325 mg PO DAILY 05/23/18 [History] Cetirizine HCl [Zyrtec] 10 mg PO DAILY PRN 05/23/18 [History] Fluticasone Furoate [Arnuity Ellipta] 1 puff IH DAILY 05/23/18 [History] Fluticasone Propionate Nasal [Flonase] 1 spray NS DAILY PRN 05/23/18 [History] Hydrocodone/Acetaminophen [Hydrocodon-Acetaminophen 5-325] 1 each PO TID PRN [History] Ipratropium/Albuterol Neb [Duoneb] 3 ml IH Q6HR PRN 05/23/18 [History] LORazepam [Ativan] 0.5 mg PO BID PRN 05/23/18 [History] Lactobacillus Combination No.8 [Adult Probiotic] 1 cap PO DAILY 05/23/18 [ History] Lisinopril [Zestril] 2.5 mg PO DAILY PRN 05/23/18 [History] Magnesium Oxide [Magnesium] 400 mg PO DAILY 05/23/18 [History] Montelukast [Singulair] 10 mg PO DAILY 05/23/18 [History] Olodaterol HCl [Striverdi Respimat] 2 puff IH DAILY 05/23/18 [History] Oxygen 3 l NS AD 05/23/18 [History] Sertraline [Zoloft] 100 mg PO HS 05/23/18 [History] Zolpidem [Ambien] 10 mg PO HS 05/23/18 [History] Atorvastatin [Lipitor] 80 mg PO HS #30 tablet 06/01/18 [Rx] Metoprolol [Lopressor] 12.5 mg PO BID #60 tablet 06/01/18 [Rx] OxyCODONE/APAP 5/325 [Percocet 5/325 MG] 1 each PO Q4HR PRN 7 Days #42 tablet [Rx] Allergies/Adverse Reactions: 3 Allergy/AdvReac Type Severity Reaction Status Date / Time No Known Allergies Allergy Verified 05/23/18 18:10 - Respiratory Orders Oxygen / L per min (3LPM via [place]) Smoking Cessation: Smoking cessation has been advised. For more information, call the [place] Tobacco Quit Line at 7-879-KRWL-NOW. - Ancillary Orders May use pressure relief devices daily prn, May go on ADRYAN w/family/respon democrat w /meds at nurse discretion PRN, May consult with Dentist, Financial Operations Consultant, Mogul Operator PRN - Advance Directives Code Status: Full Code - Mobility Orders Ambulate - Rehabiliation Orders Rehab Potential: Good Rehab Orders: Sternal Precautions, ROM Exercises, Evaluation for Physical Therapy, Evaluation for Occupational Therapy - Treatments Skin tear care topically daily PRN per policy, May check for fecal impaction rectally daily PRN, Fleet enema rectally every other day PRN cleansing purposes - Diet Orders Cardiac CERTIFICATION: I certify that the transfer of the above named patient to an Extended Care Facility is necessary for the continuing treatment of the diagnosis listed. The above information is true and accurate reflection of patient's current condition. Confidential - Redisclosure prohibited without a patient's written consent.
[2018-06-01] MEDS: Lactobacillus 1 EACH CAP.SPRINK PO SCH (07:59)
[2018-06-01] MEDS: Aspirin Enteric Coated 325 MG Tablet PO SCH (07:59)
[2018-06-01] MEDS: Chlorhexidine Rinse 15 ML MOUTHWASH MM SCH (08:01)
[2018-06-01] MEDS: Magnesium Oxide 400 MG TABLET PO SCH (08:02)
[2018-06-01] MEDS: (Fluticasone Furoate [Arnuity Ellipta] 1 PUFF) IH SCH (08:02)
[2018-06-01] MEDS: (Olodaterol Hcl [Striverdi Respimat] 2 PUFF) IH SCH (08:02)
[2018-06-01] MEDS: *HR* OxyCODONE/APAP 5/325 TABLET PO PRN ×3 (08:03→17:03)
[2018-06-01] MEDS: Loratadine 10 MG TABLET PO SCH (08:03)
[2018-06-01 11:23] VITALS: BP 91/67
[2018-06-01] MEDS: *HR* LORazepam 0.5 MG TABLET PO PRN (18:08)
== END 2018-06-01 18:17 | DRG 166 ==
LOC: 3BNU → ICNU 05-25 10:01 → 2NNU 05-27 23:24
PROVIDERS: ADMIT Emergency Medicine; ATTEND Thoracic Surgery (Cardiothoracic Vascular Surgery)